=== PATIENT | female | born 1975 | race Caucasian/White ===

== ENCOUNTER → 2020-05-16 12:53 | Outpatient (BNVA) | payer OTHER, SELFPAY | PROVIDERS: PCP Internal Medicine; Referring Provider Internal Medicine; Visit Provider Internal Medicine | DX: Z45.018 Encounter for adjustment and management of other part of cardiac pacemaker (principal); Z86.79 Personal history of other diseases of the circulatory system | CPT/HCPCS: 93005; 99204 ==

== ENCOUNTER → 2020-11-13 12:36 | Outpatient (BNVA) | payer OTHER, SELFPAY | PROVIDERS: PCP Internal Medicine; Visit Provider Internal Medicine | DX: Z45.018 Encounter for adjustment and management of other part of cardiac pacemaker (principal); I45.9 Conduction disorder, unspecified | CPT/HCPCS: 99212 ==

== ENCOUNTER → 2021-02-07 14:06 | Outpatient (REF) | payer OTHER, SELFPAY ==
--- NOTE | 2021-02-07 14:11 | CA_ITS ---
Transthoracic Echocardiogram Patient (Last, First, Middle): Cris Martinez, Gender: Female Date of : 1975 Age: 45 Procedure Date: 02/07/2021 Procedure Type: Transthoracic Echocardiogram Location: OP Height: 165.1 cm Weight: 104.33 kg BSA: 2.10 m2 Heart Rate: bpm BP: 124 / mmHg Brass Pourer: Referring MD: Sherwin Conroy MD Symptoms: I45.9 - Conduction disorder, unspecified Study Quality: Fair ECG Rhythm: Ventriculary paced rhythm Conclusions: - The left ventricular systolic function is normal. The visually estimated ejection fraction is between 60-65%. - No obvious valvular pathology seen on this study. Findings Left Ventricle Normal left ventricular cavity size. There is normal left ventricular wall thickness. The left ventricular systolic function is normal. The visually estimated ejection fraction is between 60-65%. There is no evidence of regional wall motion abnormalities. Diastolic function is normal for age. Right Ventricle Normal right ventricular cavity size and systolic function. There is a pacemaker wire seen in the right ventricle. Atria Both atria are normal in size. Aortic Valve The aortic valve was not well visualized. There is no aortic valve stenosis. There is no aortic valve regurgitation. Mitral Valve The mitral valve appears normal. There is no mitral valve regurgitation. There is no mitral valve stenosis. Pulmonic Valve The pulmonic valve was not well visualized. Tricuspid Valve There is mild tricuspid valve regurgitation. The pulmonary artery systolic pressure is normal. Great Vessels The aortic annulus, sinuses of valsalva, and asc aorta are normal in size. Venous The inferior vena cava is normal in size and collapses greater than 50% with inspiration. Pericardium/Pleural There is no evidence of pericardial effusion. Prior Study Comparison No significant change compared to prior study dated: 01/06/2020. Recommendations, Care & Conclusions No obvious valvular pathology seen on this study. Measurements 2D Linear Measurements IVSd: 1.10 0.6-0.9/0.6-1.0 cm LVIDd: 3.86 3.9-5.3/4.2-5.9 cm LVIDd Index: 1.84 2.4-3.2/2.2-3.1 cm/m2 LVIDs: 2.51 2.0-3.6 cm LVPWd: 1.15 0.7-1.1 cm Ao Root: 3.30 2.1-3.5 cm LA Diam: 3.40 2.7-3.8/3.0-4.0 cm LAIDs Index: 1.62 1.5-2.3 cm/m2 LV Mass: 177.41 67-162/88-224 g LV Mass Index: 84.48 43-95/49-115 g/m2 LVOT Diam: 2.20 3.0+(-)1.3 cm 2D Systolic Function EF 4C: 61.40 >55% EF 2C: 59.60 >55% EF BiP: 60.30 >55% Mitral Valve MV Pk E: 0.85 MV PK A: 0.63 MV Decel Time: 174.00 E/A: 1.30 E'Lateral: 12.30 E'Medial: 5.11 E/E' Med: 16.70 E/E' Lat: 6.90 Aortic Valve AoV Pk Hola: 1.54 AoV Mn Hola: 1.01 AoV VTI: 0.32 AoV Pk Grad: 9.00 Aov Mn Grad: 5.00 SHAWN Cont.VTI: 2.81 LVOT LVOT Pk Hola: 1.16 LVOT Mn Hola: 0.86 LVOT VTI: 0.24 LVOT Pk Grad: 5.00 LVOT Mn Grad: 3.00 LVOT Diam: 2.20 LVOT Area: 3.80 Diastolic Function MV Pk E: 0.85 MV Pk A: 0.63 E/A: 1.30 E'Medial: 5.11 E/E' Med: 16.70 E' Laterial: 12.30 E/E' Lat: 6.90 Tricuspid Valve TR Pk Hola: 2.23 TR Pk Grad: 20.00 RA Press: 3.00 RVSP: 23.00 Great Vessels Aorta Ao Root-2D: 3.30 2.0-3.7 cm Ao Asc: 3.00 2.1-3.4 cm Pulmonary Valve PV Pk Hola: 1.17 Peak PV Grad: 5.00 Updated in Other Vendor System with Status of Final Sherwin Conroy MD electronically signed on 02/09/2021 10:50:43 AM with status of Final
== END ==
LOC: HO.CARD 14:06
PROVIDERS: PCP Internal Medicine; Visit Provider Internal Medicine
DX: I45.9 Conduction disorder, unspecified (principal)
CPT/HCPCS: 93306

== ENCOUNTER → 2021-06-25 12:35 | Outpatient (BNVA) | payer OTHER, SELFPAY | PROVIDERS: PCP Internal Medicine; Referring Provider Internal Medicine; Visit Provider Internal Medicine | DX: I45.9 Conduction disorder, unspecified (principal); I36.1 Nonrheumatic tricuspid (valve) insufficiency; Z95.0 Presence of cardiac pacemaker | CPT/HCPCS: 99212 ==

== ENCOUNTER 2021-09-15 10:12 | Outpatient (REF) | payer OTHER, SELFPAY ==
[2021-09-15 10:38] LABS: MANUAL DIFF FLAG NO
[2021-09-15 11:01] LABS: Basophils Percent Auto 0.4 % (0-2); Eosinophils Absolute Auto 0.1 X10*3/uL (0.0-0.4); Eosinophils Percent Auto 1.8 % (0-4); Hematocrit 43.5 % (37.0-47.0); Hemoglobin 14.5 g/dl (12.0-16.0); Imm Gran Abs Auto 0.02 X10*3/uL (0.00-0.03); Imm Gran Pct Auto 0.3 % (0.0-0.4); Lymphocytes Absolute Auto 1.8 X10*3/uL (1.2-4.9); Mean Corpuscular HGB Conc 33.3 g/dl (31.0-35.0); Mean Corpuscular Hemoglobin 29.1 pg (27.0-33.0); Mean Corpuscular Volume 87.2 fL (80.0-98.0); Mean Platelet Volume 10.9 fL (9.4-12.3); Monocytes Absolute Auto 0.5 X10*3/uL (0.1-1.2); Monocytes Percent Auto 6.7 % (2-11); Neutrophils Absolute Auto 4.8 x10*3/uL (2.0-8.3); Neutrophils Percent Auto 65.8 % (45-73); Platelet Count 251 X10*3/uL (160-400); Red Blood Count 4.99 X10*6/uL (4.20-5.50); Red Cell Distribution Width 11.9 % (11.0-16.0); White Blood Count 7.3 X10*3/uL (4.8-10.8)
[2021-09-15 11:43] LABS: Thyroid Stimulating Hormone 0.93 uIU/mL (0.32-4.0); Vitamin D 25-OH Total 17.3 ng/mL (>30)
[2021-09-15 11:55] LABS: Alanine Aminotransferase 7 U/L (0-31); Albumin Level 4.4 g/dL (3.5-5.0); Alkaline Phosphatase 138 U/L (39-117); Anion Gap 12 (12-20); Aspartate Amino Transferase 13 U/L (5-31); Bilirubin Total 0.7 mg/dL (0.0-1.0); Blood Urea Nitrogen 8 mg/dL (9-16); Calcium 9.7 mg/dL (8.4-10.2); Carbon Dioxide 29 mmol/L (22-29); Chloride 103 mmol/L (96-108); Cholesterol 204 mg/dL; Estimated Glomerular Filt Rate > 60; Glucose Fasting 116 mg/dL (60-99); HDL Cholesterol 57 mg/dL; LDL Cholesterol Calculated 118 mg/dl; Potassium 4.8 mmol/L (3.3-5.1); Sodium 139 mmol/L (135-145); Total Protein 7.4 g/dL (6.5-8.0); Triglycerides 145 mg/dL
[2021-09-17 04:20] LABS: Vitamin B12 295 pg/mL (200-900)
== END 2021-09-15 10:13 | disposition home or self-care (01) ==
LOC: HO.LAB 10:12
PROVIDERS: PCP Internal Medicine; Visit Provider Internal Medicine
DX: R06.00 Dyspnea, unspecified (principal); R53.83 Other fatigue; Z95.0 Presence of cardiac pacemaker
CPT/HCPCS: 36415; 80053; 80061; 82306; 82607; 84443; 85025

== ENCOUNTER → 2021-10-03 15:51 | Outpatient (REF) | payer OTHER, SELFPAY | LOC: HO.SL 15:51 | PROVIDERS: PCP Internal Medicine; Visit Provider Internal Medicine | DX: G47.33 Obstructive sleep apnea (adult) (pediatric) (principal) | CPT/HCPCS: 95806 ==

== ENCOUNTER 2021-10-12 15:49 | Outpatient (REF) | payer OTHER, SELFPAY ==
--- NOTE | ~2021-10-12 | MM_ITS ---
EXAMINATION: MM SCREENING DIGITAL BREAST TOMOSYNTHESIS, BILATERAL CLINICAL INFORMATION: Screening. Asymptomatic. Age 45. No prior mammography. Family history breast cancer, maternal aunt. The lifetime risk of breast cancer based on Tyrer-Cuzick Model is 13%. COMPARISON: None (current study represents initial baseline exam). TECHNIQUE: Digital breast tomosynthesis is performed in both the craniocaudal and mediolateral oblique views along with computer-aided detection (CAD). Synthesized 2D images are generated from the tomosynthesis. Additional left MLO view is provided. FINDINGS: There are scattered areas of fibroglandular density (ACR BI-RADS breast composition Category b). There is fine fibronodular parenchymal pattern. The right breast has prominent draining vein upper breast and axilla. There is no adenopathy. There is no mass or architectural abnormality or abnormal calcifications. Left breast has a pacemaker generator overlying and partly obscuring posterior axilla on MLO view. There are no abnormal calcifications. The left CC view has asymmetric density mid outer quadrant 6 cm from nipple without MLO correlate, likely summation artifact. As this represents initial baseline exam, patient will be recalled to fully characterize. MM/MM tomosynthesis screening BI IMPRESSION: 1. Left: Asymmetric density mid outer quadrant on CC view, suspect summation artifact or incompletely compressed glandular tissue. 2. Right: No mammographic evidence of malignancy. ASSESSMENT: BI-RADS 0: Incomplete - Need Additional Imaging Evaluation RECOMMENDATION: 1. Additional views of the left breast (spot CC, rolled CC x2). 2. Targeted ultrasound if warranted after review of the additional views. 3. Radiology department staff will contact the patient for additional imaging. This patient's information was entered into a reminder system with a target due date for their next mammogram.
== END 2021-10-12 15:50 | disposition home or self-care (01) ==
LOC: HO.MAMMO 15:49
PROVIDERS: PCP Internal Medicine; Visit Provider Internal Medicine
DX: Z12.31 Encounter for screening mammogram for malignant neoplasm of breast (principal)
CPT/HCPCS: 77063; 77067

== ENCOUNTER 2021-11-01 14:51 | Outpatient (REF) | payer OTHER, SELFPAY ==
--- NOTE | ~2021-11-01 | MM_ITS ---
EXAMINATION: MM DIAGNOSTIC DIGITAL BREAST TOMOSYNTHESIS, LEFT CLINICAL INFORMATION: Recall from baseline screening for parenchymal asymmetry mid outer breast on CC view, likely summation artifact or incompletely compressed glandular tissue. COMPARISON: Mammography: 10/12/2021 (baseline) TECHNIQUE: Digital breast tomosynthesis is performed. 2D images are generated from the tomosynthesis. The following views are obtained: Rolled CC x2, spot CC. FINDINGS: There are scattered areas of fibroglandular density (ACR BI-RADS breast composition Category b). Additional views show no mass or architectural abnormality. No suspicious parenchymal density. Results are discussed with the patient at time of visit. MM/MM tomosynthesis added views L IMPRESSION: Additional views show no mass, architectural abnormality, or suspicious parenchymal density. ASSESSMENT: BI-RADS 1: Negative RECOMMENDATION: Routine annual mammography screening. This patient's information was entered into a reminder system with a target due date for their next mammogram.
== END 2021-11-01 14:52 | disposition home or self-care (01) ==
LOC: HO.MAMMO 14:51
PROVIDERS: PCP Internal Medicine; Visit Provider Internal Medicine
DX: R92.2 Inconclusive mammogram (principal)
CPT/HCPCS: 77061; 77065

== ENCOUNTER → 2021-12-10 13:17 | Outpatient (BNVA) | payer OTHER, SELFPAY | PROVIDERS: PCP Internal Medicine; Referring Provider Internal Medicine; Visit Provider Internal Medicine | DX: Z45.018 Encounter for adjustment and management of other part of cardiac pacemaker (principal); I45.9 Conduction disorder, unspecified; I36.1 Nonrheumatic tricuspid (valve) insufficiency | CPT/HCPCS: 93005; 93280; 99212 ==

== ENCOUNTER 2022-03-23 09:58 | Outpatient (REF) | payer OTHER, SELFPAY ==
--- NOTE | ~2022-03-23 | XR_ITS ---
EXAMINATION: XR CHEST CLINICAL INFORMATION: Shortness of breath. COMPARISON: None available at the moment for comparison. TECHNIQUE: 2 views of the chest were obtained. FINDINGS: Dual-lead left pectoralis pacemaker device placed from the left subclavian approach is noted. Tip of both leads appear to be projecting in the region of the right ventricle. Specific note is made of apparent disruption of one of the lead with a gap of approximately 1.9 cm seen both on the frontal as well as lateral projection. Note is also made of abandoned leads from right subclavian approach. Both lungs are symmetrically expanded and are clear. The cardiac mediastinal silhouette otherwise appear unremarkable. No evidence of any pleural effusion or pneumothorax. Visualized upper abdomen is unremarkable. XR/XR chest 2V IMPRESSION: 1. Abandoned leads from the right subclavian approach. 2. 1 of the pacemaker lead placed from the left subclavian approach appears broken while the second one is intact. 3. No radiographic evidence of acute cardiopulmonary disease. The current study was read without the benefit of direct visual comparison with prior studies. Subtle findings can only be apparent when comparison is made with prior studies. If prior studies become available, following comparison, an addendum will be dictated. This critical result was discussed with Dr. Saqib Bishop MD at 4:22 PM on 03/26/2022 and it was ascertained that the content and urgency of the report was understood at the time of direct communication.
[2022-03-23 10:50] LABS: Basophils Absolute Auto 0.1 X10*3/uL (0.0-0.2); Basophils Percent Auto 0.7 % (0-2); D Dimer High Sensitivity < 150 NG/ML; Eosinophils Absolute Auto 0.1 X10*3/uL (0.0-0.4); Eosinophils Percent Auto 1.2 % (0-4); Hematocrit 43.3 % (37.0-47.0); Hemoglobin 14.9 g/dl (12.0-16.0); Imm Gran Abs Auto 0.02 X10*3/uL (0.00-0.03); Imm Gran Pct Auto 0.3 % (0.0-0.4); Lymphocytes Absolute Auto 1.7 X10*3/uL (1.2-4.9); Lymphocytes Percent Auto 23.1 % (20-40); MANUAL DIFF FLAG NO; Mean Corpuscular HGB Conc 34.4 g/dl (31.0-35.0); Mean Corpuscular Hemoglobin 29.6 pg (27.0-33.0); Mean Corpuscular Volume 85.9 fL (80.0-98.0); Mean Platelet Volume 11.1 fL (9.4-12.3); Monocytes Absolute Auto 0.5 X10*3/uL (0.1-1.2); Monocytes Percent Auto 6.4 % (2-11); Neutrophils Percent Auto 68.3 % (45-73); Platelet Count 222 X10*3/uL (160-400); Red Blood Count 5.04 X10*6/uL (4.20-5.50); Red Cell Distribution Width 11.8 % (11.0-16.0); White Blood Count 7.4 X10*3/uL (4.8-10.8)
[2022-03-23 11:30] LABS: Alanine Aminotransferase 14 U/L (0-31); Albumin Level 4.4 g/dL (3.5-5.0); Alkaline Phosphatase 125 U/L (39-117); Anion Gap 16 (12-20); Aspartate Amino Transferase 16 U/L (5-31); Bilirubin Total 0.8 mg/dL (0.0-1.0); Blood Urea Nitrogen 11 mg/dL (9-16); Calcium 9.6 mg/dL (8.4-10.2); Carbon Dioxide 25 mmol/L (22-29); Chloride 102 mmol/L (96-108); Estimated Glomerular Filt Rate > 60; Glucose Random 130 mg/dL (60-115); Potassium 4.6 mmol/L (3.3-5.1); Sodium 138 mmol/L (135-145); Total Protein 7.5 g/dL (6.5-8.0)
[2022-03-23 11:42] LABS: B Type Natriuretic Peptide 46 pg/mL (<100)
[2022-03-23 11:53] LABS: Free T4 (Free Thyroxine) 1.05 ng/dL (0.71-1.85); Thyroid Stimulating Hormone 1.11 uIU/mL (0.32-4.0)
== END 2022-03-23 09:59 | disposition home or self-care (01) ==
LOC: HO.LAB 09:58
PROVIDERS: PCP Internal Medicine; Visit Provider Internal Medicine
DX: R06.02 Shortness of breath (principal); I36.1 Nonrheumatic tricuspid (valve) insufficiency
CPT/HCPCS: 36415; 71046; 80053; 83880; 84439; 84443; 85025; 85379

== ENCOUNTER 2022-05-21 10:37 | Outpatient (REF) | payer OTHER, SELFPAY ==
[2022-05-22 09:21] LABS: BV Int Neg Control Negative (Negative); BV Int Pos Control Positive (Positive)
[2022-05-23 22:17] LABS: HPV mRNA E6/E7 rflx Not Detected (Not Detected)
== END 2022-05-21 10:38 | disposition home or self-care (01) ==
LOC: HO.LNP 10:37
PROVIDERS: Visit Provider Advanced Practice Midwife
DX: Z01.419 Encounter for gynecological examination (general) (routine) without abnormal findings (principal); N89.8 Other specified noninflammatory disorders of vagina
CPT/HCPCS: 87480; 87510; 87624; 87660; 88142

== ENCOUNTER → 2022-07-15 13:53 | Outpatient (BNVA) | payer OTHER, SELFPAY | PROVIDERS: PCP Internal Medicine; Referring Provider Internal Medicine; Visit Provider Internal Medicine | DX: I45.9 Conduction disorder, unspecified (principal); I36.1 Nonrheumatic tricuspid (valve) insufficiency; Z45.018 Encounter for adjustment and management of other part of cardiac pacemaker | CPT/HCPCS: 93005; 93280; 99212 ==

== ENCOUNTER → 2023-04-13 23:59 | Outpatient (BNV) | payer OTHER, SELFPAY ==
--- NOTE | 2023-04-19 14:07 | A.OFFVIS_ITS ---
Intake Intake Visit Reasons: Remote Device Check- [employer] Allergies Penicillins [PENICILLINS] Allergy (Intermediate, Verified 07/15/22 14:10) rash IV contrast Allergy (Unknown, Uncoded 12/10/21 13:34) UNKNOWN [facility] Medical History Heart block Surgical History H/O unilateral oophorectomy History of bilateral tubal ligation History of cardiac pacemaker History of endometrial ablation Family History Father Diabetes Mother Ovarian cancer Social History Alcohol intake: current Alcohol intake frequency: holidays/special occasions only Patient Tobacco Use Status: Never used Tobacco Sexual orientation: Straight/Heterosexual Gender identity: Female Office Procedures Cardiac Device Check Cardiac Device Check Details: Date of service- 04/13/2023 ; Battery life 2-38months; normal lead parameters; [employer] DEV[employer] >99%; no significant arrhythmias. Overall normal device function. [id number] Cardiac Device Interrogation, pacemaker Procedure code (CPT) selection complete Assessment & Plan Assessment & Plan (1) Heart block: Code(s): I45.9 - Conduction disorder, unspecified Coding Level of Care Code Procedure Only Diagnoses Heart block I45.9 CPT Codes Cardiac Device Check - Cardiac Device 12: [id number] Cardiac Device Interrogation, pacemaker ([id number])
== END ==
PROVIDERS: PCP Internal Medicine; Visit Provider Internal Medicine
DX: I45.9 Conduction disorder, unspecified (principal); Z95.0 Presence of cardiac pacemaker
CPT/HCPCS: 93294

== ENCOUNTER 2024-01-12 14:46 | Outpatient (AMB) | payer OTHER, SELFPAY ==
--- NOTE | 2024-01-12 15:19 | MHC.OFFVIS ---
Vital Signs 01/12/24 15:20 Height 5 ft 5 in Weight 244 lb 11.41 oz BMI 40.7 BP 122/68 Blood Pressure Location Lt brachial Position Sitting Pulse 86 Pulse Source Monitor Intake Visit Reasons: [employer]tr[employer] then appt Allergies Penicillins [PENICILLINS] Allergy (Intermediate, Verified 07/15/22 14:10) rash IV contrast Allergy (Unknown, Uncoded 12/10/21 13:34) UNKNOWN Medication List - Last Reconciled 01/12/24 by Sherwin Conroy MD naproxen mg PO HPI Comments Details: Cris is here for follow-up regarding her pacemaker. Per patient, she has had a pacemaker since age of 6 or so. She apparently passed out around that time at which time she was thought to have possibly heart block. Then she underwent pacemaker placement. Initially it appears that she had an epicardial pacemaker in the abdomen. Then that was changed to a right pectoral pacemaker at some point and then currently it is in the left pectoral area. She has had several generator changes over time. Since last seen, no new complaints. She states she is feeling fine. Prior sleep study was apparently negative. Otherwise, no known coronary disease, myocardial infarction or cardiomyopathy. [facility] Medical History Heart block Surgical History H/O unilateral oophorectomy History of bilateral tubal ligation History of cardiac pacemaker History of endometrial ablation Family History Father Diabetes Mother Ovarian cancer Social History Alcohol intake: current Alcohol intake frequency: holidays/special occasions only Patient Tobacco Use Status: Never used Tobacco Sexual orientation: Straight/Heterosexual Gender identity: Female Review of Systems Const Denies weakness ENT Denies dizziness Card Denies chest pain, Denies chest pain with activity, Denies syncope, Denies rapid heart rate, Denies pedal edema, Denies edema, Denies leg edema, Denies lightheadedness, Denies palpitations, Denies dyspnea, Denies dyspnea on exertion and Denies orthopnea Resp Denies cough, Denies dyspnea and Denies dyspnea on exertion GI Denies hematochezia and Denies change in stool character Musc Denies abnormal gait, Denies muscle cramps, Denies muscle weakness, Denies numbness, Denies radiating pain into limb and Denies tingling Neuro Denies abnormal gait, Denies dizziness, Denies syncope, Denies numbness, Denies tingling and Denies weakness Endo Denies palpitations Physical Exam Vital Signs: Last Vital Signs Pulse 86 01/12/24 15:20 BP 122/68 01/12/24 15:20 BMI result Body Mass Index 40.7 Const General: comfortable and no acute distress Orientation/consciousness: patient oriented x3 HEENT Other: Unremarkable Head: Yes normal to inspection Neck Neck: Yes normal visual inspection Chest Chest palpation & inspection: normal inspection of the chest Resp Auscultation: clear to auscultation bilaterally Cardio Palpation: normal PMI Heart sounds: S1 normal heart sound present, S2 normal heart sound present, no gallops, no murmurs and no rubs GI Palpation (GI): Soft to palpation Back/Spine/Pelvis Other: unremarkable Skin General skin exam: no rashes or lesions noted Neuro General: patient oriented x3 Extrem General: Yes normal to inspection Psych Mental Status: mental status grossly normal Office Procedures Cardiac Device Check Cardiac Device Check Details: Pacemaker interrogated today. Dual-chamber device, programmed DDD mode. Battery status 7 months. Normal lead parameters. No significant atrial arrhythmias. Atrial pacing 1.5%. Ventricular pacing 99.9%. No episodes. Overall, normal device function. [id number] Cardiac Device Check, pacemaker dual lead Procedure code (CPT) selection complete EKG Details: EKG with atrial sensed, ventricular paced rhythm at 86/Min; possibly PACs. [id number], Complete Assessment & Plan Assessment & Plan (1) Heart block: Code(s): I45.9 - Conduction disorder, unspecified Category: Medical (2) Presence of cardiac pacemaker: Code(s): Z95.0 - Presence of cardiac pacemaker Category: Medical (3) Non-rheumatic tricuspid valve insufficiency: Code(s): I36.1 - Nonrheumatic tricuspid (valve) insufficiency Category: Medical Plan Echocardiogram in the past mild tricuspid regurgitation but otherwise unremarkable. Preserved LVEF and RVEF. Pacemaker also seems to function normally. We will recheck a pacemaker in about 4-6 months as the battery life is becoming short. We will also recheck an echocardiogram prior to generator change. Orders: Orders CA echo transthoracic complete 6 Months I36.1 - Nonrheumatic tricuspid (valve) insufficiency, I45.9 - Conduction disorder, unspecified, Z95.0 - Presence of cardiac pacemaker Coding Level of Care Code Est Pt Level 3 (78568) Diagnoses Heart block I45.9 Presence of cardiac pacemaker Z95.0 Non-rheumatic tricuspid valve insufficiency I36.1 CPT Codes Cardiac Device Check - Cardiac Device 2: [id number] Cardiac Device Check, pacemaker dual lead ([id number]) EKG - CPT: 45508-[id number], Complete ([id number])
[2024-01-12 15:20] VITALS: BP 122/68; PULSE 86; BMI 40.7
== END 2024-01-12 15:48 | disposition home or self-care (01) ==
PROVIDERS: PCP Internal Medicine; Visit Provider Internal Medicine
DX: I44.30 Unspecified atrioventricular block (principal); R94.31 Abnormal electrocardiogram [ECG] [EKG]; Z95.0 Presence of cardiac pacemaker; I36.1 Nonrheumatic tricuspid (valve) insufficiency
CPT/HCPCS: 93010; 93280; 99213

== ENCOUNTER → 2024-01-12 14:46 | Outpatient (BNVA) | payer OTHER, SELFPAY | PROVIDERS: PCP Internal Medicine; Visit Provider Internal Medicine | DX: I36.1 Nonrheumatic tricuspid (valve) insufficiency (principal); I45.9 Conduction disorder, unspecified; Z45.018 Encounter for adjustment and management of other part of cardiac pacemaker | CPT/HCPCS: 93005; 93280 ==

== ENCOUNTER 2024-05-23 18:19 | Emergency (ER) | payer OTHER, SELFPAY ==
--- NOTE | ~2024-05-23 | CT_ITS ---
EXAMINATION: CT HEAD WITHOUT CONTRAST CLINICAL INFORMATION: Headache. COMPARISON: None available. TECHNIQUE: Contiguous axial imaging was performed from the skull base to vertex without intravenous administration of contrast. This CT examination was performed using dose optimization techniques as appropriate, variously including the following: *Automated exposure control *Adjustment of mA and/or kV according to patient size (this includes techniques or standardized protocols for targeted exams where dose is matched to indication/reason for exam; i.e. extremities or head) *Use of iterative reconstruction technique DLP: 649 mGy-cm FINDINGS: There is a small volume of subarachnoid hemorrhage anterior to the right side of the socorro. Hemorrhage extends superiorly into the interpeduncular cistern. Blood extends inferiorly along the premedullary surface. There is no evidence of acute/subacute cerebral or cerebellar infarction. There is no midline shift or mass effect. The ventricles are normal in size. The orbits are symmetric and within normal limits. The calvarium is intact. The mastoid air cells are clear. Visualized paranasal sinuses are well-aerated. CT/CT head/brain wo IV con IMPRESSION: There is a small volume of subarachnoid hemorrhage anterior to the right side of the socorro. Hemorrhage extends superiorly into the interpeduncular cistern and inferiorly along the anterior aspect of the medulla. This critical result was discussed with Blanca Amor MD at 7:16 PM on 05/23/2024 and it was ascertained that the content and urgency of the report was understood at the time of direct communication. Electronically signed by: Alden Julio DO 05/23/2024 07:20 PM EDT
--- NOTE | ~2024-05-23 | CT_ITS ---
EXAMINATION: CT ANGIOGRAM NECK AND HEAD CLINICAL INFORMATION: Subarachnoid hemorrhage. COMPARISON: Correlation made with CT performed on the same day. TECHNIQUE: Sequential axial angiographic images of the head and neck obtained. Sagittal and coronal reformatted MIP images also obtained. The degree of stenosis determined by NASCET criteria. This CT examination was performed using dose optimization techniques as appropriate, variously including the following: *Automated exposure control *Adjustment of mA and/or kV according to patient size (this includes techniques or standardized protocols for targeted exams where dose is matched to indication/reason for exam; i.e. extremities or head) *Use of iterative reconstruction technique DLP: 1548 mGy-cm FINDINGS: The visualized aortic arch is within normal limits. There is a three-vessel branch pattern from the aortic arch. The aortic arch branch vessels are patent. The visualized upper lung devine and upper mediastinal unremarkable. CTA NECK: The common carotid, internal and the external carotid arteries are patent. The left vertebral artery is dominant. The bilateral vertebral arteries are patent. CTA HEAD: The intracranial internal carotid arteries, anterior and middle cerebral arteries are patent. The distal vertebral arteries, basilar artery and branches are also patent. No aneurysm is identified. CT/CT angio head neck IMPRESSION: No evidence of large vessel occlusion or significant stenosis in the head and neck. No aneurysm is identified. Consider perimesencephalic subarachnoid hemorrhage which may be venous in nature. Electronically signed by: Yusuf Chaidez MD 05/24/2024 02:26 AM EDT
[2024-05-23 18:30] VITALS: BP 178/64; PULSE 65; RESP 18; TEMP 36; O2SAT 98; BMI 39.9
--- NOTE | 2024-05-23 18:34 | ED_ITS ---
HPI - General Adult General Chief complaint: Headache Stated complaint: Spinal pain/Sharp headache Time Seen by Provider: 05/23/24 19:32 Source: patient Mode of arrival: ambulatory Limitations: no limitations History of Present Illness ED Provider: Dr. Blanca Amor HPI narrative: patient comes to the emergency room complaining of a throbbing headache that started over 24 hour hours ago. According to the patient, she was laying down, and when she stood up, she started having back pain and sharp headache in the middle in the front. Patient states that the pain is intermittent, has not taking multiple doses of Tylenol and Motrin, medication seems to help but not for long, the throbbing pain returns fairly quickly. Patient denies any numbness or tingling. Patient states that she also has a bit of neck fullness in the posterior aspect. Otherwise, patient denies any loss of motor function, otherwise feels well. Patient denies any falls, no trauma, patient denies being on blood thinners or any medication. Patient states that she has a pacemaker since she was 6 years old for heart block, has never had any other cardiac issues. Related Data Home Medications ?Medication ?Instructions ?Recorded ?Confirmed No Known Home Meds 05/23/24 05/23/24 Allergies Allergy/AdvReac Type Severity Reaction Status Date / Time Penicillins [PENICILLINS] Allergy Intermediate rash Verified 05/23/24 18:36 IV contrast Allergy Unknown UNKNOWN Uncoded 12/10/21 13:34 Review of Systems 2 Review of Systems: Constitutional : No Weight loss, No Fever, No Chills, No Night Sweats, No Fatigue, No Malaise ENT/Mouth : No Hearing loss, No Ear Pain, No Nasal Congestion, No Sinus Pain, No Hoarseness, No sore throat, No Rhinorrhea, No Swallowing Difficulty Eyes: No Eye Pain, No Swelling, No Redness, No Foreign Body, No Discharge, No Vision Changes Cardiovascular : No Chest Pain, No SOB, No Dyspnea on Exertion, No Orthopnea, No Edema, No Palpitations Respiratory : No Cough, No Sputum, No Wheezing, No Smoke Exposure, No Dyspnea Gastrointestinal : No Nausea, No Vomiting, No Diarrhea, No Constipation, No abdominal Pain, No Hematochezia, No Melena Genitourinary : no irregular bleeding, No Dysuria, No Urinary Frequency, No Hematuria, No Urinary Incontinence, No Urgency, No Flank Pain, No Urinary Flow Changes, No Hesitancy Musculoskeletal : No joint pain, No Myalgias, No Joint Swelling Skin : No Skin Lesions, No rash Neuro : No Weakness, No Numbness, No Paresthesias, No Loss of Consciousness, No Dizziness, Complaining of a sharp intermittent Headache Psych : No Anxiety/Panic, No Depression, No SI/HI/AH/VH, No Social Issues, Heme/Lymph: No Bruising, No Bleeding,No Lymphadenopathy Endocrine : No Polyuria, No Polydipsia, No Temperature Intolerance [facility] Past Medical History Medical History Heart block Surgical History H/O unilateral oophorectomy History of bilateral tubal ligation History of cardiac pacemaker History of endometrial ablation Family History Family History Father Diabetes Mother Ovarian cancer Social History Social History Alcohol intake: current Alcohol intake frequency: holidays/special occasions only Patient Tobacco Use Status: Never used Tobacco Smoked in Last 30 Days: No Use of substances other than those prescribed or required for medical reasons: No Advance Directives: No Advance Directives Information Provided: No Sexual orientation: Straight/Heterosexual Gender identity: Female Physical Exam ED Vital Signs: Vital Signs - 24 hr 05/23/24 18:30 05/23/24 19:28 05/23/24 19:50 Temperature 96.8 F 97.9 F Pulse Rate 65 65 Respiratory Rate 18 18 16 Blood Pressure 178/64 H 146/65 H Pulse Oximetry 98 97 Oxygen Delivery Method Room Air Room Air 05/23/24 20:28 05/23/24 20:28 05/23/24 21:27 Temperature Pulse Rate 65 65 65 Respiratory Rate 16 16 16 Blood Pressure 143/72 H 143/72 H 122/59 L Pulse Oximetry 97 96 Oxygen Delivery Method Room Air Room Air 05/23/24 22:47 05/24/24 00:46 05/24/24 02:22 Temperature 98 F 97.7 F Pulse Rate 65 65 65 Respiratory Rate 16 14 18 Blood Pressure 110/65 130/70 150/66 H Pulse Oximetry 96 95 96 Oxygen Delivery Method Room Air Room Air Room Air BMI result Body Mass Index 39.9 Const Other: Appearance: Alert. Oriented X3. No acute distress. Eyes: Pupils equal, round and reactive to light. ENT: Pharynx normal. able to move then neck with discomfort with flexion and extension. Neck: Normal inspection. Neck supple. No lymph nodes noted. No crepitus CVS: Normal heart rate and rhythm. Pulses normal. Normal S1 and S2 Respiratory: No respiratory distress. Breath sounds normal. No Wheezing. No rales Abdomen: Soft and nontender. No rigidity. No distention. Skin: Skin warm and dry. Normal skin color. Normal skin turgor. Extremities: No lower extremity edema. No Lacerations. No Rash Neuro: Oriented X 3. No motor deficit. No sensory deficit. Moving all extremities. No slurred speech. CN 2 through 12 grossly intact Psych: calm, cooperative, normal affect Course Course Course Narrative: This is a Rapid Medical Examination (RME) performed by Rebecca Gordon PA-C in triage. Full HPI, ROS, assessment and treatment plan per primary provider in the Main ED. 48 yo female hx of heart block s/p pacemaker here for eval of throbbing, stabbing headache x24 hours. Pain radiation to neck and back. Worse with sitting. Denies recent fall, trauma, injury. No history of similar. Endorses associated numbness to right hand. Plan: labs, ekg, ct head Medications Administered Discontinued Medications Generic Name Dose Route Start Last Admin Trade Name Freq PRN Reason Stop Dose Admin Diazepam 2 mg 05/24/24 00:26 05/24/24 00:47 Diazepam 2 Mg Tablet PO 05/24/24 00:27 2 mg ONCE ONE Administration Diphenhydramine HCl 50 mg 05/23/24 20:17 05/23/24 20:29 Diphenhydramine Hcl 50 Mg/Ml Vial IVPUSH 05/23/24 20:18 50 mg ONCE ONE Administration Famotidine 20 mg 05/23/24 20:17 05/23/24 20:29 Famotidine/Pf 20 Mg/2 Ml Vial IVPUSH 05/23/24 20:18 20 mg ONCE ONE Administration Iohexol 70 ml 05/23/24 21:24 05/23/24 21:25 Iohexol 350 Mg/Ml 100 Ml Infus..Btl IV 05/23/24 21:25 70 ml ONCE ONE Administration Methylprednisolone Sodium Succinate 125 mg 05/23/24 20:17 05/23/24 20:29 Methylprednisolone Sod Succ 125 Mg/2 Ml Vial IVPUSH 05/23/24 20:18 125 mg ONCE ONE Administration Morphine Sulfate 2 mg 05/23/24 19:44 05/23/24 19:50 Morphine Sulfate 2 Mg/Ml Cartridge IVPUSH 05/23/24 19:45 2 mg ONCE ONE Administration Protocol Medical Decision Making Medical Decision Making MDM Narrative: - I received a phone call from [facility], there is a small volume subarachnoid hemorrhage in the anterior to the right side of the socorro. Hemorrhage extends superiorly into the interventricular cistern and inferiorly along the anterior aspect of the medulla. - My interpretation of EKG: Ventricular paced rhythm. Heart rate 65, nonspecific ST segment elevations, no T-wave inversion, QTC 470 - A CTA has been ordered to rule out an aneurysm. patient states that she has been told since childhood that she has an allergy to contrast, consisting of hives. Patient agreeable to get premedicated before the CT scan. - Patient was given IV morphine for the headache. - After the CT scan, patient did not develop any allergic reaction, contrast was well tolerated after being premedicated with Solu-Medrol, Pepcid and Benadryl. - Patient's blood pressure 130/70, heart rate 65, no fever, oxygen saturation 95-99% on room air. - After IV morphine, patient states that the headache nearly resolved. Patient states that what is bothering her more the most is a fullness in her neck. Patient was given 2 mg of p.o. diazepam. - CTA has been pending for several hours. We have called multiple times [facility] trying to get The radiology report. - Fortunately, patient is doing well, stable vital signs, no neurological decompensation, GCS 15, headache improving and neck fullness improving slightly as well - I discussed the patient with [facility] PA from Neurosurgery on- call. At this time, unlikely that the patient will need any kind of intervention other than observation. Recommendations, talk to Neurology. - 02:10, we have contacted [facility] at least 5 times. A were data communications technician called [facility] to check why the CT scan has not been red for so many hours. According to [facility] staff, they did not have neuro radiologist on-call for the shift and were waiting for the next neuro radiologist to come and shift. - Patient continues being stable, GCS 15, states that the diazepam helped. As long as she does not move, patient is asymptomatic. No headache, no neck pain as long as she does not move. If she moves, the Patient in the posterior aspect of the neck is minimal. - CT of the head and neck: Very perimesencephalic subarachnoid hemorrhage which may be venous in nature, no evidence of large vessel occlusion or significant stenosis, no aneurysm identified - 03:05: We spoke to the transfer line from [facility], waiting for call back from Neurology. Called at 02:20. - Patient remains asymptomatic, neurologically intact, no headache, no neck pain, only complaining of some pressure when she moves. - Sign-out given to my colleague Dr. Salgado 320 am Patient with spontaneous subarachnoid bleed anterior to the right side of the socorro. Hemorrhage extends superiorly into the interpeduncular cistern and inferiorly along the anterior aspect of the medulla. With GCS of 15 no history of hypotension no trauma not on anticoagulation case discussed with Dr. Wilkins at [facility] neurologist will extra blood transfer for further evaluation Differential Diagnosis Differential Diagnoses: The differential diagnosis associated with the presentation includes ( aneurysm rupture, subarachnoid hemorrhage,) Admission/Observation Consideration of admission/observation: Escalation of care including admission/observation considered ( transfer considered to [facility]) Consult Healthcare Provider Management of the patient was discussed with: Cardiovascular Technician Lab Data MDM Lab Attestation statement: I reviewed the patient's lab results. 05/23/24 19:00 05/23/24 19:00 Labs: Lab Results 05/23/24 Range/Units 19:00 WBC 10.3 (4.8-10.8) X10*3/uL RBC 5.03 (4.20-5.50) X10*6/uL Hgb 14.4 (12.0-16.0) g/dl Hct 42.7 (37.0-47.0) % MCV 84.9 (80.0-98.0) fL MCH 28.6 (27.0-33.0) pg MCHC 33.7 (31.0-35.0) g/dl RDW 12.2 (11.0-16.0) % Plt Count 202 (160-400) X10*3/uL MPV 10.9 (9.4-12.3) fL Immature Gran % (Auto) 0.3 (0.0-0.4) % Neut % (Auto) 68.7 (45-73) % Lymph % (Auto) 22.5 (20-40) % Lee % (Auto) 6.7 (2-11) % Eos % (Auto) 1.4 (0-4) % Baso % (Auto) 0.4 (0-2) % Lymph # (Auto) 2.3 (1.2-4.9) X10*3/uL Lee # (Auto) 0.7 (0.1-1.2) X10*3/uL Eos # (Auto) 0.1 (0.0-0.4) X10*3/uL Baso # (Auto) 0.0 (0.0-0.2) X10*3/uL Abs Immat Gran (auto) 0.03 (0.00-0.03) X10*3/uL Absolute Neuts (auto) 7.1 (2.0-8.3) x10*3/uL Absolute Nucleated RBC 0.000 (0.0-0.012) X10*3/uL Nucleated RBC % (auto) 0.0 (0.0-0.2) /100WBC PT 11.9 (10.9-12.4) SEC INR 1.0 (0.9-1.1) Sodium 140 (135-145) mmol/L Potassium 4.1 (3.3-5.1) mmol/L Chloride 107 (96-108) mmol/L Carbon Dioxide 24 (22-29) mmol/L Anion Gap 13 (12-20) BUN 14 (9-16) mg/dL Creatinine 0.96 (0.5-1.4) mg/dL Estim Creat Clear Calc 86.0 Estimated GFR > 60 Random Glucose 122 H (60-115) mg/dL Calcium 9.6 (8.4-10.2) mg/dL Magnesium 1.7 (1.6-2.6) mg/dL Total Bilirubin 0.6 (0.0-1.0) mg/dL AST 29 (5-31) U/L ALT 22 (0-31) U/L Alkaline Phosphatase 101 (39-117) U/L Troponin I High Sens < 2.7 (<3.5-17.0) ng/L Total Protein 7.0 (6.5-8.0) g/dL Albumin 4.3 (3.5-5.0) g/dL Independent Interpretation I performed an independent interpretation of an: CT Scan Radiology Impression Discussion of test interpretation with radiology: I have reviewed the radiologist's reading. Radiologist Impression: There is a small volume of subarachnoid hemorrhage anterior to the right side of the socorro. Hemorrhage extends superiorly into the interpeduncular cistern and inferiorly along the anterior aspect of the medulla. No evidence of large vessel occlusion or significant stenosis in the head and neck. No aneurysm is identified. Consider perimesencephalic subarachnoid hemorrhage which may be venous in nature. Critical Care Time Critical Care Time Critical Care Time: Yes Total Critical Care Time: 90 Attestation: I have personally provided critical care time. Time includes review of lab data, radiology results, discussion with consultants, and monitoring for potential decompensation. Intervention performed as documented. Discharge Plan Discharge Clinical Impression: Subarachnoid bleed Patient Disposition: [facility] Transfer Details: [facility] Dr. Wilkins Prescriptions: No Action No Known Home Meds Print Language: Tongan
--- NOTE | 2024-05-23 18:36 | ECG_ITS ---
Test Reason : HEADACHE Blood Pressure : / mmHG Vent. Rate : 065 BPM Atrial Rate : 070 BPM P-R Int : 000 ms QRS Dur : 156 ms QT Int : 452 ms P-R-T Axes : 000 -62 087 degrees QTc Int : 470 ms Ventricular-paced rhythm Abnormal ECG No previous ECGs available Referred By: Michelle Gordon Electronically Signed By:Francois William
[2024-05-23 19:06] LABS: MANUAL DIFF FLAG NO
[2024-05-23 19:08] LABS: Basophils Percent Auto 0.4 % (0-2); Eosinophils Absolute Auto 0.1 X10*3/uL (0.0-0.4); Eosinophils Percent Auto 1.4 % (0-4); Hematocrit 42.7 % (37.0-47.0); Hemoglobin 14.4 g/dl (12.0-16.0); Imm Gran Abs Auto 0.03 X10*3/uL (0.00-0.03); Imm Gran Pct Auto 0.3 % (0.0-0.4); Lymphocytes Absolute Auto 2.3 X10*3/uL (1.2-4.9); Lymphocytes Percent Auto 22.5 % (20-40); Mean Corpuscular HGB Conc 33.7 g/dl (31.0-35.0); Mean Corpuscular Hemoglobin 28.6 pg (27.0-33.0); Mean Corpuscular Volume 84.9 fL (80.0-98.0); Mean Platelet Volume 10.9 fL (9.4-12.3); Monocytes Absolute Auto 0.7 X10*3/uL (0.1-1.2); Monocytes Percent Auto 6.7 % (2-11); Neutrophils Absolute Auto 7.1 x10*3/uL (2.0-8.3); Neutrophils Percent Auto 68.7 % (45-73); Platelet Count 202 X10*3/uL (160-400); Red Blood Count 5.03 X10*6/uL (4.20-5.50); Red Cell Distribution Width 12.2 % (11.0-16.0); White Blood Count 10.3 X10*3/uL (4.8-10.8)
[2024-05-23 19:13] LABS: Prothrombin Time 11.9 SEC (10.9-12.4)
[2024-05-23 19:23] LABS: Alanine Aminotransferase 22 U/L (0-31); Albumin Level 4.3 g/dL (3.5-5.0); Alkaline Phosphatase 101 U/L (39-117); Anion Gap 13 (12-20); Aspartate Amino Transferase 29 U/L (5-31); Bilirubin Total 0.6 mg/dL (0.0-1.0); Blood Urea Nitrogen 14 mg/dL (9-16); Calcium 9.6 mg/dL (8.4-10.2); Carbon Dioxide 24 mmol/L (22-29); Chloride 107 mmol/L (96-108); Estimated Glomerular Filt Rate > 60; Glucose Random 122 mg/dL (60-115); Magnesium 1.7 mg/dL (1.6-2.6); Potassium 4.1 mmol/L (3.3-5.1); Sodium 140 mmol/L (135-145)
[2024-05-23 19:27] LABS: Troponin-I High Sensitivity < 2.7 ng/L (<3.5-17.0)
[2024-05-23 19:28] VITALS: BP 146/65; PULSE 65; RESP 18; TEMP 36.6; O2SAT 97
--- NOTE | 2024-05-23 19:36 | PC.NURSE ---
Patient reports she stood from bed yesterday around 12pm and felt like her back was locked and had a stiff neck w/ a shooting pain towards her head. patient reports hear whooshing sound when laying down. intermittent head and neck pain since, c/o tingling to right hand as well as tingling to upper lip extending to left cheek. neuros intact, denies vision changes, PERRLA. patient denies blood thinners. Dr. Amor at bedside and updating patient on results of CT and plan of care.
[2024-05-23 19:50] VITALS: RESP 16
[2024-05-23] MEDS: Morphine Sulfate 2 MG/ML CARTRIDGE IVPUSH (19:50)
[2024-05-23 20:28] VITALS: BP 143/72; PULSE 65; RESP 16; O2SAT 97
[2024-05-23] MEDS: Famotidine/PF 20 MG/2 ML VIAL IVPUSH (20:29)
[2024-05-23] MEDS: methylPREDNISolone Sod Succ 125 MG/2 ML VIAL IVPUSH (20:29)
[2024-05-23] MEDS: diphenhydrAMINE HCL 50 MG/ML VIAL IVPUSH (20:29)
--- NOTE | 2024-05-23 20:42 | PC.NURSE ---
patient premedicated prior to CT with contrast r/t allergy (rash) to IV contrast.
--- NOTE | 2024-05-23 21:08 | PC.NURSE ---
patient to CT at this time
[2024-05-23] MEDS: iohexoL 350 MG/ML 100 ML INFUS..BTL 70 ML IV (21:25)
[2024-05-23 21:27] VITALS: BP 122/59; PULSE 65; RESP 16; O2SAT 96
--- NOTE | 2024-05-23 21:27 | PC.NURSE ---
patient returned from CT. skin flush, warm dry. resp even and non labored. speaking in full, clear sentences. neuros remain intact.
[2024-05-23 22:47] VITALS: BP 110/65; PULSE 65; RESP 16; TEMP 36.6; O2SAT 96
--- NOTE | 2024-05-23 22:49 | PC.NURSE ---
patient awake and alert. skin flush, warm, dry, resp even and non labored. speaking in full, clear sentences. reports 1/10 neck pain. states that tingling in right hand is resolved at this time and that tingling to upper lip is improving. awaiting results of CTA. neuros intact w/ no changes to neuro assessment
--- NOTE | 2024-05-24 | PC.NURSE ---
This property underwriter assumed care of this Pt at 2300. Pt A&Ox3, reports 2/10 pain to neck/back worsening with movements such as standing up and intermittent headache to top of head/frontal area. Pt reports improvement of left top lip tingling and bilateral hands. Neuros intact. Pt able to ambulate to W/C and brought to [facility].
[2024-05-24 00:46] VITALS: BP 130/70; PULSE 65; RESP 14; O2SAT 95
[2024-05-24] MEDS: diazePAM 2 MG TABLET PO (00:47)
[2024-05-24 02:22] VITALS: BP 150/66; PULSE 65; RESP 18; TEMP 36.5; O2SAT 96
[2024-05-24 03:41] LABS: COVID-19 Test Negative (Negative); IDNOW Serial# 08D9AD1C
[2024-05-24 03:43] VITALS: BP 150/66; PULSE 65; RESP 18; TEMP 36.5; O2SAT 96
--- NOTE | 2024-05-24 03:45 | PC.NURSE ---
Report given to Daysi at [facility]. Pt will be transported via ambulance, /Pt aware of plan.
== END 2024-05-24 04:31 | disposition short-term general hospital (02) ==
PROVIDERS: Internal Medicine; Physician Assistant Medical; Emergency Provider Emergency Medicine; PCP Internal Medicine
DX: I60.9 Nontraumatic subarachnoid hemorrhage, unspecified (principal); R51.9 Headache, unspecified; Z95.0 Presence of cardiac pacemaker
CPT/HCPCS: 36415; 70450; 70496; 70498; 80053; 83735; 84484; 85025; 85610; 87635; 93005; 99285; J1200; J2270; J2919; Q9967

== ENCOUNTER → 2024-05-23 18:36 | Outpatient (BNV) | payer OTHER, SELFPAY | PROVIDERS: Emergency Provider Emergency Medicine; PCP Internal Medicine; Visit Provider Internal Medicine Cardiovascular Disease | DX: R94.31 Abnormal electrocardiogram [ECG] [EKG] (principal) | CPT/HCPCS: 93010 ==

== ENCOUNTER → 2024-06-02 14:41 | Outpatient (REF) | payer OTHER, SELFPAY ==
--- NOTE | 2024-06-02 14:52 | CA_ITS ---
Transthoracic Echocardiogram Patient (Last, First, Middle): Cris Martinez A Gender: Female Date of : 1975 Age: 48 Procedure Date: 06/02/2024 Procedure Type: Transthoracic Echocardiogram Location: OP Height: 165.1 cm Weight: 110.22 kg BSA: 2.15 m2 Heart Rate: bpm BP: 142 / 76 mmHg Regional Service Manager: ZARIA Referring MD: Sherwin Conroy MD Symptoms: I36.1 - Nonrheumatic tricuspid (valve) insufficiency Study Quality: Adequate ECG Rhythm: Undetermined Conclusions: - The left ventricular systolic function is normal. The visually estimated ejection fraction is between 60-65%. - No obvious valvular pathology seen on this study. Findings Left Ventricle Normal left ventricular cavity size. There is normal left ventricular wall thickness. The left ventricular systolic function is normal. The visually estimated ejection fraction is between 60-65%. Diastolic function is indeterminate on the basis of available data. Right Ventricle Normal right ventricular cavity size and systolic function. Atria Both atria are normal in size. Aortic Valve The aortic valve was not well visualized. There is no aortic valve stenosis. There is no aortic valve regurgitation. Mitral Valve The mitral valve appears normal. There is no mitral valve regurgitation. There is no mitral valve stenosis. Pulmonic Valve The pulmonic valve is likely normal. Tricuspid Valve There is mild tricuspid valve regurgitation. There is no evidence of pulmonary hypertension. Great Vessels The asc aorta and aortic arch are normal in size. Venous The inferior vena cava is normal in size and collapses greater than 50% with inspiration. Pericardium/Pleural There is no evidence of pericardial effusion. Prior Study Comparison No significant change compared to prior study dated: 02/07/2021. Recommendations, Care & Conclusions No obvious valvular pathology seen on this study. Measurements 2D Linear Measurements IVSd: 0.98 0.6-0.9/0.6-1.0 cm LVIDd: 4.21 3.9-5.3/4.2-5.9 cm LVIDd Index: 1.96 2.4-3.2/2.2-3.1 cm/m2 LVIDs: 2.57 2.0-3.6 cm LVPWd: 0.94 0.7-1.1 cm LA Diam: 3.40 2.7-3.8/3.0-4.0 cm LAIDs Index: 1.58 1.5-2.3 cm/m2 LV Mass: 162.07 67-162/88-224 g LV Mass Index: 75.38 43-95/49-115 g/m2 LVOT Diam: 2.00 3.0+(-)1.3 cm 2D Systolic Function EF 4C: 63.80 >55% EF 2C: 61.90 >55% EF BiP: 62.20 >55% Mitral Valve MV Pk E: 0.87 MV PK A: 0.71 MV Decel Time: 287.00 E/A: 1.20 E'Lateral: 13.30 E'Medial: 5.98 E/E' Med: 14.60 E/E' Lat: 6.60 PHT: 84.00 MVA PHT: 2.62 Decel Tyler: 3.16 Aortic Valve AoV Pk Hola: 1.46 AoV Mn Hola: 0.99 AoV VTI: 0.37 AoV Pk Grad: 9.00 Aov Mn Grad: 4.00 SHAWN Cont.VTI: 2.15 LVOT LVOT Pk Hola: 1.31 LVOT Mn Hola: 0.89 LVOT VTI: 0.25 LVOT Pk Grad: 7.00 LVOT Mn Grad: 4.00 LVOT Diam: 2.00 LVOT Area: 3.14 Diastolic Function MV Pk E: 0.87 MV Pk A: 0.71 E/A: 1.20 E'Medial: 5.98 E/E' Med: 14.60 E' Laterial: 13.30 E/E' Lat: 6.60 Right Ventricle TAPSE (mm): 19.60 TVS' Hola: 11.10 Tricuspid Valve TR Pk Hola: 2.59 TR Pk Grad: 27.00 RA Press: 3.00 RVSP: 30.00 Great Vessels Aorta Ao Asc: 3.20 2.1-3.4 cm Ao Arch: 3.00 Updated in Other Vendor System with Status of Final Sherwin Conroy MD electronically signed on 06/05/2024 12:51:55 PM with status of Final
== END ==
LOC: HO.CARD 14:41
PROVIDERS: PCP Internal Medicine; Visit Provider Internal Medicine
DX: I36.1 Nonrheumatic tricuspid (valve) insufficiency (principal); I45.9 Conduction disorder, unspecified; Z95.0 Presence of cardiac pacemaker
CPT/HCPCS: 93306

== ENCOUNTER → 2024-06-02 14:52 | Outpatient (BNV) | payer OTHER, SELFPAY | PROVIDERS: PCP Internal Medicine; Visit Provider Internal Medicine | DX: I36.1 Nonrheumatic tricuspid (valve) insufficiency (principal) | CPT/HCPCS: 93306 ==

== ENCOUNTER 2024-06-14 08:35 | Outpatient (REF) | payer OTHER, SELFPAY ==
[2024-06-14 10:11] LABS: MANUAL DIFF FLAG NO
[2024-06-14 10:20] LABS: Basophils Absolute Auto 0.1 X10*3/uL (0.0-0.2); Basophils Percent Auto 0.7 % (0-2); Eosinophils Absolute Auto 0.1 X10*3/uL (0.0-0.4); Eosinophils Percent Auto 1.5 % (0-4); Hematocrit 43.4 % (37.0-47.0); Hemoglobin 14.4 g/dl (12.0-16.0); Imm Gran Abs Auto 0.02 X10*3/uL (0.00-0.03); Imm Gran Pct Auto 0.3 % (0.0-0.4); Lymphocytes Absolute Auto 1.5 X10*3/uL (1.2-4.9); Lymphocytes Percent Auto 19.8 % (20-40); Mean Corpuscular HGB Conc 33.2 g/dl (31.0-35.0); Mean Corpuscular Hemoglobin 28.6 pg (27.0-33.0); Mean Corpuscular Volume 86.3 fL (80.0-98.0); Monocytes Absolute Auto 0.5 X10*3/uL (0.1-1.2); Neutrophils Absolute Auto 5.2 x10*3/uL (2.0-8.3); Neutrophils Percent Auto 70.7 % (45-73); Platelet Count 252 X10*3/uL (160-400); Red Blood Count 5.03 X10*6/uL (4.20-5.50); Red Cell Distribution Width 12.3 % (11.0-16.0); White Blood Count 7.3 X10*3/uL (4.8-10.8)
[2024-06-14 10:45] LABS: Alanine Aminotransferase 22 U/L (0-31); Albumin Level 4.2 g/dL (3.5-5.0); Alkaline Phosphatase 115 U/L (39-117); Anion Gap 13 (12-20); Aspartate Amino Transferase 21 U/L (5-31); Bilirubin Total 0.4 mg/dL (0.0-1.0); Blood Urea Nitrogen 11 mg/dL (9-16); Calcium 9.4 mg/dL (8.4-10.2); Carbon Dioxide 25 mmol/L (22-29); Chloride 105 mmol/L (96-108); Cholesterol 157 mg/dL (<200); Estimated Glomerular Filt Rate > 60; Glucose Fasting 135 mg/dL (60-99); HDL Cholesterol 50 mg/dL (>40); LDL Cholesterol Calculated 77 mg/dL (<100); Potassium 4.2 mmol/L (3.3-5.1); Sodium 139 mmol/L (135-145); Total Protein 7.3 g/dL (6.5-8.0); Triglycerides 150 mg/dL (<150)
[2024-06-14 10:55] LABS: Estimated Average Glucose 137 mg/dL; Hemoglobin A1C 180.9609 umol/L; Hemoglobin A1c % 6.4 % (<6.0); Total Hemoglobin (HGBA1C) 3935.8413 umol/L
[2024-06-14 10:58] LABS: Creatinine Urine 529.59 mg/dL; Microalbum/Creatinine Ratio Ur 12.2 ug/mg cr (<30)
[2024-06-14 11:24] LABS: Free T4 (Free Thyroxine) 1.05 ng/dL (0.71-1.85)
== END 2024-06-14 08:36 | disposition home or self-care (01) ==
LOC: HO.HMGCLDS 08:35
PROVIDERS: PCP Internal Medicine; Visit Provider Internal Medicine
DX: I10 Essential (primary) hypertension (principal); R73.03 Prediabetes; R63.5 Abnormal weight gain
CPT/HCPCS: 36415; 80053; 80061; 82043; 82570; 83036; 84439; 85025; 93280

== ENCOUNTER 2024-06-14 14:33 | Outpatient (AMB) | payer OTHER, SELFPAY ==
[2024-06-14 14:48] VITALS: BP 120/70; PULSE 65; BMI 39.3
--- NOTE | 2024-06-14 14:48 | A.OFFVIS_ITS ---
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 Per patient, she has had a pacemaker since age of 6 or so. She apparently passed out around that time at which time she was thought to have possibly heart block. Then she underwent pacemaker placement. Initially it appears that she had an epicardial pacemaker in the abdomen. Then that was changed to a right pectoral pacemaker at some point and then currently it is in the left pectoral area. She has had several generator changes over time. She was recently at [facility] with subarachnoid hemorrhage when she apparently also had elevated blood pressure. She was then started on amlodipine. She is awaiting a follow-up appointment with neuro interventionalist. Otherwise, no cardiac symptoms. [facility] Medical History Heart block Surgical History History of bilateral tubal ligation H/O unilateral oophorectomy History of cardiac pacemaker History of endometrial ablation Family History Father Diabetes Mother Ovarian cancer Social History Alcohol intake: current Alcohol intake frequency: holidays/special occasions only Patient Tobacco Use Status: Never used Tobacco Sexual orientation: Straight/Heterosexual Gender identity: Female Review of Systems Const Denies chills, Denies fatigue, Denies fever(s), Denies frequent falls, Denies weakness, Denies weight gain and Denies weight loss ENT Denies dizziness Card Denies chest pain, Denies leg edema, Denies lightheadedness, Denies palpitations, Denies dyspnea and Denies dyspnea on exertion Resp Denies cough, Denies dyspnea and Denies dyspnea on exertion GI Denies hematochezia Musc Denies abnormal gait, Denies muscle weakness, Denies numbness, Denies radiating pain into limb and Denies tingling Neuro Denies abnormal gait, Denies dizziness, Denies frequent falls, Denies numbness, Denies tingling and Denies weakness Endo Denies fatigue and Denies palpitations Physical Exam Vital Signs: Last Vital Signs Pulse 65 06/14/24 14:48 BP 120/70 06/14/24 14:48 BMI result Body Mass Index 39.3 Const General: comfortable and no acute distress Orientation/consciousness: patient oriented x3 HEENT Other: Unremarkable Head: Yes normal to inspection Neck Neck: Yes normal visual inspection Chest Chest palpation & inspection: normal inspection of the chest Resp Auscultation: clear to auscultation bilaterally Cardio Palpation: normal PMI Heart sounds: S1 normal heart sound present, S2 normal heart sound present, no gallops, no murmurs and no rubs GI Palpation (GI): Soft to palpation Back/Spine/Pelvis Other: unremarkable Skin General skin exam: no rashes or lesions noted Neuro General: patient oriented x3 Extrem General: Yes normal to inspection Psych Mental Status: mental status grossly normal Office Procedures Cardiac Device Check Cardiac Device Check Details: Pacemaker interrogated today. Dual-chamber device, programmed VVI as it reached LINDA on 02/20/2024. Normal RV lead parameters. Not pacer dependent, at VVI 40. Otherwise, she is V paced > 99%. [id number] Cardiac Device Check, pacemaker dual lead Procedure code (CPT) selection complete Assessment & Plan Assessment & Plan (1) Heart block: Code(s): I45.9 - Conduction disorder, unspecified Category: Medical (2) Pacer at end of battery life: Code(s): Z45.010 - Encounter for checking and testing of cardiac pacemaker pulse generator [battery] Category: Medical (3) Primary hypertension: Code(s): I10 - Essential (primary) hypertension Category: Medical Plan Echocardiogram with LVEF of 60-65%. No wall motion abnormalities or other significant findings. With regard to pacemaker, has reached LINDA and hence we will request urgent generator change. Discussed with Dr. Chalhoub about this and he will make arrangements. For hypertension, continue amlodipine. Coding Level of Care Code Est Pt Level 4 (74571) Diagnoses Heart block I45.9 Pacer at end of battery life Z45.010 Primary hypertension I10 CPT Codes Cardiac Device Check - Cardiac Device 2: [id number]-[id number] Cardiac Device Check, pacemaker dual lead ([id number])
== END 2024-06-14 15:54 | disposition home or self-care (01) ==
PROVIDERS: PCP Internal Medicine; Visit Provider Internal Medicine
DX: I45.9 Conduction disorder, unspecified (principal); Z45.010 Encounter for checking and testing of cardiac pacemaker pulse generator [battery]; I10 Essential (primary) hypertension
CPT/HCPCS: 93280; 99214

== ENCOUNTER → 2024-07-19 12:36 | Outpatient (BNVA) | payer OTHER, SELFPAY | PROVIDERS: PCP Internal Medicine; Visit Provider Nurse Practitioner Family ==

== ENCOUNTER → 2024-08-25 23:59 | Outpatient (BNV) | payer OTHER, SELFPAY ==
--- NOTE | 2024-08-29 11:25 | A.OFFVIS_ITS ---
Intake Visit Reasons: Remote Device Check- [employer] Allergies Penicillins [PENICILLINS] Allergy (Intermediate, Verified 05/23/24 18:36) rash IV contrast Allergy (Unknown, Uncoded 12/10/21 13:34) UNKNOWN [facility] Medical History Heart block Surgical History History of bilateral tubal ligation H/O unilateral oophorectomy History of cardiac pacemaker History of endometrial ablation Family History Father Diabetes Mother Ovarian cancer Social History Alcohol intake: current Alcohol intake frequency: holidays/special occasions only Patient Tobacco Use Status: Never used Tobacco Sexual orientation: Straight/Heterosexual Gender identity: Female Office Procedures Cardiac Device Check Cardiac Device Check Details: Date of service- 08/25/2024 ; Battery life >12 years; normal lead parameters; AP 18%; POTLINE MONITOR 98%; no significant arrhythmias. Overall normal device function. [id number] Cardiac Device Interrogation, pacemaker Procedure code (CPT) selection complete Assessment & Plan Assessment & Plan (1) Presence of cardiac pacemaker: Code(s): Z95.0 - Presence of cardiac pacemaker Category: Medical (2) Heart block: Code(s): I45.9 - Conduction disorder, unspecified Category: Medical Plan x Coding Level of Care Code Procedure Only Diagnoses Presence of cardiac pacemaker Z95.0 Heart block I45.9 CPT Codes Cardiac Device Check - Cardiac Device 12: [id number] Cardiac Device Interrogation, pacemaker ([id number])
== END ==
PROVIDERS: PCP Internal Medicine; Visit Provider Internal Medicine
DX: I45.9 Conduction disorder, unspecified (principal); Z95.0 Presence of cardiac pacemaker
CPT/HCPCS: 93294

== ENCOUNTER 2024-09-13 12:33 | Outpatient (AMB) | payer OTHER, SELFPAY ==
--- NOTE | 2024-09-13 12:35 | MHC.OFFVIS ---
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 Today she reports that in June she had a bleed in her brain and they found an aneurysm and a stent was placed. She has not had any issues since that time. Generator change for her pacemaker done in June as well. She has had some itching along her left upper chest scar. The area has no signs of infection, open skin or drainage. She has no chest discomfort at rest or with activity. No shortness of breath, heart palpitations, lightheadedness. She reports good activity tolerance. She does a sedentary type job. She does not do any routine exercise. Compliant with meds. [facility] Medical History Heart block Surgical History History of bilateral tubal ligation H/O unilateral oophorectomy History of cardiac pacemaker History of endometrial ablation Family History Father Diabetes Mother Ovarian cancer Social History Alcohol intake: current Alcohol intake frequency: holidays/special occasions only Patient Tobacco Use Status: Never used Tobacco Sexual orientation: Straight/Heterosexual Gender identity: Female Review of Systems Const All systems reviewed & are unremarkable except as noted in HPI and below ENT Denies dizziness Card Denies chest pain, Denies chest pain at rest, Denies chest pain with activity, Denies rapid heart rate, Denies pedal edema, Denies edema, Denies leg edema, Denies lightheadedness, Denies palpitations, Denies dyspnea, Denies dyspnea on exertion and Denies orthopnea Resp Denies cough, Denies dyspnea and Denies dyspnea on exertion GI Denies hematochezia and Denies change in stool character Musc Denies abnormal gait, Denies limited range of motion, Denies muscle cramps, Denies muscle weakness, Denies numbness, Denies radiating pain into limb, Denies stiffness and Denies tingling Neuro Denies abnormal gait, Denies dizziness, Denies numbness and Denies tingling Endo Denies palpitations Physical Exam Vital Signs: Last Vital Signs Pulse 101 H 09/13/24 12:36 BP 140/82 H 09/13/24 12:36 BMI result Body Mass Index 40.0 Const General: cooperative, healthy appearing, comfortable and no acute distress Orientation/consciousness: patient oriented x3 Neck Neck: Yes normal visual inspection Chest Other: pacemaker site left upper chest with reddish keloid type scarring of incision line - no skin breaks or signs of infection Resp Effort & Inspection: normal respiratory effort Auscultation: clear to auscultation bilaterally, no crackles, no rales, no rhonchi and no wheezes Cardio Jugular venous distension: no JVD Rate: regular rate Rhythm: regular rhythm Heart sounds: S1 normal heart sound present, S2 normal heart sound present, no murmurs and no rubs Neuro General: patient oriented x3 Extrem General: Yes normal to inspection Psych Appearance: grossly normal Mental Status: mental status grossly normal Speech and movement: Normal speech and movement present Office Procedures Cardiac Device Check Cardiac Device Check Details: [employer] dual-chamber pacemaker interrogation shows battery 12.1 years, DDD mode, low rate 50, right atrial threshold 0.75 volts at 0.4 milliseconds, RV threshold 1 volt at 0.4 milliseconds, a paced 16.3%, V paced 98.5% no alerts [id number] Cardiac Device Check, pacemaker dual lead Procedure code (CPT) selection complete EKG Details: Today, read by me, atrial sensed, ventricular paced rhythm, rate 101 [id number], Complete Assessment & Plan Assessment & Plan (1) Presence of cardiac pacemaker: Comment: [facility] Code(s): Z95.0 - Presence of cardiac pacemaker Category: Medical Plan: Long history of cardiac pacemaker placement. She recently underwent a generator change. She has a keloid scar appearance to her Gen change site. She says the area is itchy at times. No signs of infection or open skin. Instructed her to not scratch the area as that may introduce bacteria. Notify us if she has ongoing concerns. Device interrogation today shows it is functioning normally. Battery has 12 years. She V paces 98.5% of the time. Last echo done 06/02/2024 showed EF 60-65%, no valve abnormalities. She has remote monitoring for her device. Next office interrogation due in 1 year, sooner if needed. (2) Primary hypertension: Code(s): I10 - Essential (primary) hypertension Category: Medical Plan: Newer diagnosis of hypertension. She reports that last June she was started on amlodipine. Blood pressure is mildly elevated today at 140/82. Reviewed the benefits of low-salt diet, weight loss, increasing physical activity. She does have a PCP follow-up next month. Blood pressure remains elevated her amlodipine dose can be increased or alternate agent added. (3) Heart block: Code(s): I45.9 - Conduction disorder, unspecified Category: Medical Plan: Pacemaker in place Plan Time spent on chart review, documentation, interview and assessment Coding Level of Care Code Est Pt Level 4 (94991) Complex EM visit Add On G2211 Diagnoses Presence of cardiac pacemaker Z95.0 Primary hypertension I10 Heart block I45.9 CPT Codes Cardiac Device Check - Cardiac Device 2: 53352-GQ Cardiac Device Check, pacemaker dual lead ([id number]) EKG - CPT: 83582-[id number], Complete ([id number]) Time Spent (min) 28
[2024-09-13 12:36] VITALS: BP 140/82; PULSE 101; BMI 40.0
== END 2024-09-13 12:59 | disposition home or self-care (01) ==
PROVIDERS: PCP Internal Medicine; Visit Provider Nurse Practitioner Family
DX: I10 Essential (primary) hypertension (principal); Z95.0 Presence of cardiac pacemaker; I45.9 Conduction disorder, unspecified
CPT/HCPCS: 93010; 93280; 99214

== ENCOUNTER → 2024-09-13 12:33 | Outpatient (BNVA) | payer OTHER, SELFPAY | PROVIDERS: PCP Internal Medicine; Visit Provider Nurse Practitioner Family | DX: I10 Essential (primary) hypertension (principal); I45.9 Conduction disorder, unspecified; Z45.018 Encounter for adjustment and management of other part of cardiac pacemaker | CPT/HCPCS: 93005; 93280 ==

== ENCOUNTER 2024-10-26 12:58 | Outpatient (REF) | payer OTHER, SELFPAY ==
[2024-10-26 16:32] LABS: Hematocrit 43.4 % (37.0-47.0); Hemoglobin 14.7 g/dl (12.0-16.0); Mean Corpuscular HGB Conc 33.9 g/dl (31.0-35.0); Mean Corpuscular Hemoglobin 28.2 pg (27.0-33.0); Mean Corpuscular Volume 83.3 fL (80.0-98.0); Mean Platelet Volume 10.2 fL (9.4-12.3); Platelet Count 288 X10*3/uL (160-400); Red Blood Count 5.21 X10*6/uL (4.20-5.50); Red Cell Distribution Width 12.3 % (11.0-16.0); White Blood Count 8.2 X10*3/uL (4.8-10.8)
[2024-10-26 16:45] LABS: Estimated Average Glucose 140 mg/dL; Hemoglobin A1c % 6.5 % (<6.0)
[2024-10-26 17:07] LABS: Alanine Aminotransferase 22 U/L (0-31); Albumin Level 4.4 g/dL (3.5-5.0); Alkaline Phosphatase 116 U/L (39-117); Anion Gap 13 (12-20); Aspartate Amino Transferase 29 U/L (5-31); Bilirubin Direct 0.2 mg/dL (0.0-0.5); Bilirubin Total 0.4 mg/dL (0.0-1.0); Blood Urea Nitrogen 11 mg/dL (9-16); Calcium 9.7 mg/dL (8.4-10.2); Carbon Dioxide 26 mmol/L (22-29); Chloride 105 mmol/L (96-108); Cholesterol 184 mg/dL (<200); Estimated Glomerular Filt Rate > 60; Glucose Random 94 mg/dL (60-115); HDL Cholesterol 63 mg/dL (>40); LDL Cholesterol Calculated 82 mg/dL (<100); Potassium 3.9 mmol/L (3.3-5.1); Sodium 140 mmol/L (135-145); Total Protein 7.6 g/dL (6.5-8.0); Triglycerides 198 mg/dL (<150)
[2024-10-26 17:17] LABS: Free T4 (Free Thyroxine) 1.01 ng/dL (0.71-1.85); Thyroid Stimulating Hormone 0.82 uIU/mL (0.32-4.0); Vitamin D 25-OH Total 23.7 ng/mL (>30)
[2024-10-26 17:42] LABS: Creatinine Urine 132.14 mg/dL; Microalbum/Creatinine Ratio Ur 68.1 ug/mg cr (<30)
[2024-10-26 18:34] LABS: CT PCR NOT DETECTED (Not Detect.); NG PCR NOT DETECTED (Not Detect.)
[2024-10-27 04:05] LABS: Hepatitis A Antibody IgG Nonreactive (Nonreactive); ~Hepatitis A Antibody IgG 0.49 S/CO (0.00-0.99)
[2024-10-27 04:08] LABS: HBS Num1 0.12 mIU/mL (0-7.99); HBc Num1 0.14 S/CO (0.00-0.79); HBsAGNum1 0.31 S/CO (0.00-0.99); HIV AB/AG Nonreactive (Nonreactive); HIV Num 1 0.07 S/CO (0.00-0.99); Hepatitis B Core Antibody Nonreactive (Nonreactive); Hepatitis B Surface Antigen Negative (Negative); ~HepC Num1 0.24 S/CO (0.00-0.79); ~Hepatitis B Surface Antibody NONREACTIVE (Nonreactive); ~Hepatitis C Antibody Nonreactive (Nonreactive)
[2024-10-27 09:53] LABS: RPR Rapid Plasma Reagin NON-REACTIVE (NON-REACTIVE)
== END 2024-10-26 12:59 | disposition home or self-care (01) ==
LOC: HO.HHCL 12:58
PROVIDERS: Visit Provider Family Medicine
DX: Z00.00 Encounter for general adult medical examination without abnormal findings (principal); I10 Essential (primary) hypertension
CPT/HCPCS: 80048; 80061; 80076; 82043; 82306; 82570; 83036; 84439; 84443; 85027; 86592; 86704; 86706; 86708; 86803; 87340; 87389; 87491; 87591

== ENCOUNTER 2025-01-10 12:59 | Outpatient (AMB) | payer OTHER, SELFPAY ==
[2025-01-10 13:38] VITALS: BP 122/68; PULSE 72; BMI 39.9
--- NOTE | 2025-01-10 13:38 | A.OFFVIS_ITS ---
Vital Signs 01/10/25 13:38 Height 5 ft 5 in Weight 240 lb BMI 39.9 BP 122/68 Blood Pressure Location Lt brachial Position Sitting Pulse 72 Pulse Source Pulse Oximeter Intake Visit Reasons: 6 mth f/up w/ medtronic ck Allergies Penicillins [PENICILLINS] Allergy (Intermediate, Verified 10/27/24 13:51) rash IV contrast Allergy (Unknown, Uncoded 10/27/24 13:51) UNKNOWN Medication List - Last Reconciled 01/10/25 by Sherwin Conroy MD amlodipine 5 mg PO DAILY aspirin 81 mg PO DAILY atorvastatin 10 mg PO DAILY cetirizine 5 mg PO DAILY clopidogrel 75 mg PO DAILY lisinopril 10 mg PO DAILY sertraline 25 mg PO DAILY trazodone 50 mg PO DAILY HPI Comments Details: Cris is here for follow-up regarding her pacemaker. Per patient, she has had a pacemaker since age of 6 or so. She apparently passed out around that time at which time she was thought to have possibly heart block. Then she underwent pacemaker placement. Initially it appears that she had an epicardial pacemaker in the abdomen. Then that was changed to a right pectoral pacemaker at some point and then in the left pectoral area. She has had several generator changes over time, most recently from 2023. In 2023, she was admitted to [facility] with subarachnoid hemorrhage/hypertension. She underwent cerebral angiogram which apparently showed an incidental aneurysm but not thought to be related to subarachnoid hemorrhage. She has undergone neuro intervention for the same and was then put on aspirin/Plavix. Otherwise, she actually states she is feeling pretty good. She has got no overt cardiovascular symptoms. [facility] Medical History Heart block Surgical History History of bilateral tubal ligation H/O unilateral oophorectomy History of cardiac pacemaker History of endometrial ablation Family History Father Diabetes Mother Ovarian cancer Social History Alcohol intake: current Alcohol intake frequency: holidays/special occasions only Patient Tobacco Use Status: Never used Tobacco Sexual orientation: Straight/Heterosexual Gender identity: Female Review of Systems Const All systems reviewed & are unremarkable except as noted in HPI and below Reports as per HPI and Reports no additional complaints Eyes Reports as per HPI and Denies no additional complaints ENT Denies no additional complaints and Reports as per HPI Card Reports as per HPI, Reports no additional complaints, Denies acrocyanosis, Denies chest pain, Denies leg edema, Denies lightheadedness, Denies palpitations and Denies dyspnea Resp Reports as per HPI, Denies no additional complaints and Denies dyspnea GI Reports as per HPI and Denies no additional complaints Reports as per HPI Musc Reports no additional complaints and Reports as per HPI Skin/Breast Reports system reviewed and no additional complaints, except as documented Neuro Reports no additional complaints and Reports as per HPI Psych Reports no additional complaints and Reports as per HPI Endo Reports no additional complaints, Reports as per HPI and Denies palpitations Rob/Lymph Reports no additional complaints and Reports as per HPI Aller/Immun Reports no additional complaints and Reports as per HPI Physical Exam Vital Signs: Last Vital Signs Pulse 72 01/10/25 13:38 BP 122/68 01/10/25 13:38 BMI result Body Mass Index 39.9 Const General: comfortable and no acute distress Orientation/consciousness: patient oriented x3 HEENT Other: Unremarkable Head: Yes normal to inspection Neck Neck: Yes normal visual inspection Chest Chest palpation & inspection: normal inspection of the chest Resp Auscultation: clear to auscultation bilaterally Cardio Palpation: normal PMI Heart sounds: S1 normal heart sound present, S2 normal heart sound present, no gallops, no murmurs and no rubs GI Palpation (GI): Soft to palpation Back/Spine/Pelvis Other: unremarkable Skin General skin exam: no rashes or lesions noted Neuro General: patient oriented x3 Extrem General: Yes normal to inspection Psych Mental Status: mental status grossly normal Office Procedures Cardiac Device Check Cardiac Device Check Details: Pacemaker interrogated today. Dual-chamber device, programmed DDD. Battery status more than 11 years. Atrial pacing 7.4%. Ventricular pacing > 99%. Normal lead parameters. No episodes. Underlying complete heart block/ventricular pacing at 40/Min. Overall, normal device function. [id number] Cardiac Device Check, pacemaker dual lead Procedure code (CPT) selection complete Assessment & Plan Assessment & Plan (1) Encounter for interrogation of cardiac pacemaker: Code(s): Z45.018 - Encounter for adjustment and management of other part of cardiac pacemaker Category: Medical (2) Heart block: Code(s): I45.9 - Conduction disorder, unspecified Category: Medical (3) Primary hypertension: Code(s): I10 - Essential (primary) hypertension Category: Medical Plan Last echocardiogram with LVEF of 60-65%. No wall motion abnormalities or other significant findings. Pacemaker check today and with normal function. We will continue to monitor remotely and recheck in clinic in one year. With regard to blood pressure, on amlodipine/lisinopril. Blood pressure seems stable today. Discussion Notes During our discussion, I reviewed the management of the patient's hypertension, cerebral aneurysm, and pacemaker. We confirmed the continuation of her current medication regimen with amlodipine and lisinopril. The decision to continue aspirin and Plavix will be according to the neuro interventionalist.. I explained the ongoing stability and normal operation of her pacemaker, affirming the efficacy of the annual tamiko-based monitoring. We agreed on maintaining her existing follow-up schedule without additional interventions. The patient expressed understanding and consented to this plan. Patient was informed and verbally consented to the use of an ambient scribe for clinic note documentation during this visit. Patient Instructions: - Continue taking your current blood pressure medications (amlodipine and lisinopril) daily as prescribed. - Monitor your pacemaker using your tamiko as planned. - Report any new symptoms or concerns immediately. - We will continue yearly check-ups unless advised differently. Coding Level of Care Code Est Pt Level 3 (15162) Diagnoses Encounter for interrogation of cardiac pacemaker Z45.018 Heart block I45.9 Primary hypertension I10 CPT Codes Cardiac Device Check - Cardiac Device 2: [id number] Cardiac Device Check, pacemaker dual lead ([id number])
--- OUTSIDE RECORDS SUMMARY | 2025-01-10 14:40 | XMS_ITS | Encounter Summary ---
Author Organization [employer] Address [address] [place] [address] [address] [place] [address] Care Team Providers Care Senior Analysis Specialist Name Role Phone Tita Flores DO Primary Care Provider + [phone] Reason for Visit * Reason Comments Med Change Request Encounter Details Date Type Department Care Team ([facility] st Contact Info) Description 12/21/2024 Refill [facility] [address] [place] [address] Tita Flores DO [address] [place] [address] Social History Tobacco Use Types Packs/Day Years Used Date Smoking Tobacco: Never Smokeless Tobacco: Never Alcohol Use Standard Drinks/Week Comments Never 0 (1 standard drink = 0.6 oz pur e alcohol) Depression Answer Date Recorded Patient Health Questionnaire-9 Score 19 10/26/2024 Patient Health Questionnaire-9 Score 19 10/26/2024 Last PHQ-9: Questionnaire Data Not on file 0 10/26/2024 Housing Stability Answer Date Recorded What is your housing situation today? I have arturo casanova 10/18/[address] you li ve. Do you have problems with any of the following? None of the above 10/18/2024 Food Insecurity Answer Date Recorded Within the past 12 months, y ou worried that your food would run out before you got money to buy more: Never True 10/18/2024 Within the past 12 months,th e food you bought just didn't last and you didn't have enough money to get more: Never True Transportation Answer Date Recorded In the past 12 months, has l ack of transportation kept you from medical appts, meetings, work or from getting things needed for daily living? No 10/18/2024 Utilities Answer Date Recorded In the past 12 months, has t he electric, gas, oil or water company threatened to shut off services in your home? No 10/18/2024 Depression Answer Date Recorded Patient Health Questionnaire-2 Score 5 10/26/2024 Internet Access Answer Date Recorded Internet Access Q1 Yes 10/18/2024 Internet Access Q2 Not on file 10/18/2024 Comments No Sex and Gender Information Value Date Recorded Sex Assigned at Choose not to disclose 12:37 PM EDT Legal Sex Female 1:24 PM EST Gender Identity Female 11/04/2024 7:26 PM EDT Sexual Orientation Straight 11/04/2024 7: 26 PM EDT documented as of this encounter Plan of Treatment Not on file documented as of this encounter Visit Diagnoses Not on filedocumented in this encounter Additional Health Concerns Assessment Noted Time PHQ-9 Depression Total Score: 19 025 3:01 PM EDT documented as of this encounter Care Teams Senior Analysis Specialist Relationship Specialty Start Date End Date Tita Flores DO [address] [place] [id number] PCP - General Family Medicine 10/26/24 documented as of this encounter
== END 2025-01-10 13:54 | disposition home or self-care (01) ==
LOC: HO.HCS 13:00
PROVIDERS: PCP Internal Medicine; Visit Provider Internal Medicine
DX: I45.9 Conduction disorder, unspecified (principal); Z45.018 Encounter for adjustment and management of other part of cardiac pacemaker; I10 Essential (primary) hypertension
CPT/HCPCS: 93280; 99213

== ENCOUNTER → 2025-01-10 12:59 | Outpatient (BNVA) | payer OTHER, SELFPAY | PROVIDERS: PCP Internal Medicine; Visit Provider Internal Medicine | DX: Z45.018 Encounter for adjustment and management of other part of cardiac pacemaker (principal) | CPT/HCPCS: 93280 ==

== ENCOUNTER 2025-03-30 11:41 | Outpatient (REF) | payer OTHER, SELFPAY ==
--- NOTE | ~2025-03-30 | XR_ITS ---
EXAMINATION: XR KNEE, RIGHT CLINICAL INFORMATION: PAIN COMPARISON: None available. TECHNIQUE: AP lateral and sunrise views of the right knee. FINDINGS: There is joint space narrowing involving mostly the medial compartment with sclerosis along the articular surface of the medial tibial plateau. Small marginal osteophyte formation and medial femoral condyle and medial tibial plateau. No acute cortical disruption or malalignment. No gross suprapatellar bursa joint effusion. No lytic or blastic lesions. XR/XR knee RT 4V IMPRESSION: Medial compartment osteoarthrosis/osteoarthritis, mild to moderate. Electronically signed by: Delbert Hanson MD 03/30/2025 12:13 PM EDT
--- OUTSIDE RECORDS SUMMARY | 2025-03-30 10:45 | XMS_ITS | Encounter Summary ---
Author Organization [employer] Address [address] [place] [address] 7 [place] [address] Care Team Providers Care Scouring Machine Operator Name Role Phone Tita Flores DO Primary Care Provider + [phone] Encounter Details Date Type Department Care Team (Late st Contact Info) Description 03/30/2025 10:45 AM EDT Office Visit [facility] [address] [place] [address] Tita Flores DO [address] [place] [address] Type 2 diabetes mellitus without complication, without long-term current use of insulin (CMS/HCC) (Primary Dx); Essential hypertension; Complete heart block (CMS/HCC); Generalized anxiety disorder; Healthcare maintenance; Dietary counseling; Exercise counseling; Chronic pain of right knee Social History Tobacco Use Types Packs/Day Years [...] the past 12 months, has t he [employer], gas, oil or water company threatened to [...] PM EDT documented as of this encounter Last Filed Vital Signs Vital Sign Reading Time Taken Comments Blood Pressure 116/70 03/30/2025 10:43 AM EDT Pulse 60 03/30/2025 10:43 AM EDT Temperature 36.5 C (97.7 F) 03/30/2025 10:43 AM EDT Respiratory Rate 21 03/30/2025 10:43 AM EDT Oxygen Saturation 98% 03/30/2025 10:43 AM EDT Inhaled Oxygen Concentration - - Weight 110 kg (243 lb) 03/30/2025 10:43 AM EDT Height 165.1 cm (5' 5 ) 03/30/2025 10:43 AM EDT Body Mass Index 40.44 03/30/2025 10:43 AM EDT documented in this encounter Plan of Treatment Not on file documented as of this encounter Procedures Procedure Name Priority Date/Time Associated Diagnosis Comments XR KNEE 4+ VIEWS RIGHT Routine 03/30/2025 11:52 AM EDT Chronic pain of right knee POCT GLYCATED HEMOGLOBIN, TOTAL Routine 03/30/2025 10:45 AM EDT Type 2 diabetes mellitus without complication, without long-term current use of insulin ([facility]) POCT GLUCOSE Routine 03/30/2025 10:45 AM EDT Type 2 diabetes mellitus without complication, without long-term current use of insulin ([facility]) documented in this encounter Results * XR Knee 4+ Views Right (03/30/2025 11:52 AM EDT) Anatomical Region Laterality Modality Lower Extremities, Knee Right [facility] 03/30/2025 11:5 2 AM EDT Narrative 03/30/2025 12:16 [place] [address] XRay Report Signed Patient: Cris Martinez MR#: [id number] : 1975 Acct:[id number] Age/Sex: 49 / F ADM Date: 03/30/25 [facility]: Tita Flores DO Ordering Physician: Tita Flores DO Date of Service: 03/30/25 Procedure(s): XR knee RT 4V Accession Number(s): [id number] cc: Tita Flores DO EXAMINATION: XR KNEE, RIGHT CLINICAL INFORMATION: PAIN COMPARISON: None available. TECHNIQUE: AP lateral and sunrise views of the right knee. FINDINGS: There is joint space narrowing involving mostly the medial compartment with sclerosis along the articular surface of the medial tibial plateau. Small marginal osteophyte formation and medial femoral condyle and medial tibial plateau. No acute cortical disruption or malalignment. No gross suprapatellar bursa joint effusion. No lytic or blastic lesions. XR/XR knee RT 4V IMPRESSION: Medial compartment osteoarthrosis/osteoarthritis, mild to moderate. Electronically signed by: Delbert Hanson MD 03/30/2025 12:13 PM EDT RP Dictated By: Delbert Montoya MD Signed By: <Electronically signed by Delbert To MD in OV> 03/30/25 1213 DD/ 1152 TD/TT: 03/30/25 1200 Library Manager: Procedure Note Donotuseinterpreter, Image - 03/30/[address] [address] XRay Report Signed Patient: Cris Martinez AMR#: [id number] : 1975Acct:[id number] Age/Sex: 49 / FADM Date: 03/30/25 Loc: [facility] Attending Dr: Tita Flores DO Ordering Physician: Tita Flores DO Date of Service: 03/30/25 Procedure(s): XR knee RT 4V Accession Number(s): [id number] cc: Tita Flores DO EXAMINATION: XR KNEE, RIGHT CLINICAL INFORMATION: PAIN COMPARISON: None available. TECHNIQUE: AP lateral and sunrise views of the right knee. FINDINGS: There is joint space narrowing involving mostly the medial compartment with sclerosis along the articular surface of the medial tibial plateau. Small marginal osteophyte formation and medial femoral condyle and medial tibial plateau. No acute cortical disruption or malalignment. No gross suprapatellar bursa joint effusion. No lytic or blastic lesions. XR/XR knee RT 4V IMPRESSION: Medial compartment osteoarthrosis/osteoarthritis, mild to moderate. Electronically signed by: Delbert Hanson MD 03/30/2025 12:13 PM EDT Dictated By: Delbert Montoya MD Signed By: <Electronically signed by Delbert To MDin OV> 03/30/25 1213 DD/ 1152 TD/TT: 03/30/25 1200 Library Manager: Tita Flores DO IMG XR PROCEDURES Final Resu lt * (ABNORMAL) POCT HGB A1C (03/30/2025 10:45 AM EDT) Hemoglobin A1C 6.4(A) 4.0 - 5.7 % QC Media Lot # [id number] Lot# Expiration Date Blood 03/30/2025 10:4 5 AM EDT Tita Flores DO POINT OF CARE TEST ENTER/CANDIDA T ORDERABLES Final Result * POCT Glucose (03/30/2025 10:45 AM EDT) Glucose Blood, POC 135 60 - 200 mg/dL QC Media Lot # [id number] Lot# Expiration Date 016 Blood Capillary blood specimen / Unknown 03/30/2025 10:45 AM EDT Result [facility] Tita Flores DO POINT OF CARE TEST ENTER/CANDIDA T ORDERABLES Final Result documented in this encounter Visit Diagnoses Diagnosis Type 2 diabetes mellitus without complication, without long-term current use of insulin (CMS/HCC)- Primary Essential hypertension Unspecified essential hypertension Complete heart block (CMS/HCC) Atrioventricular block, complete Generalized anxiety disorder Healthcare maintenance Dietary counseling Dietary surveillance and counseling Exercise counseling Chronic pain of right knee documented in this encounter Additional Health Concerns Assessment Noted Time PHQ-9 Depression Total Score: 19 10/26/ 025 3:01 PM EDT documented as of this encounter Care Teams Scouring Machine Operator Relationship Specialty Start Date End Date Tita Flores DO [address] [place] [address] PCP - General Family Medicine 10/26/24 documented as of this encounter
--- OUTSIDE RECORDS SUMMARY | 2025-03-30 12:39 | XMS_ITS | Encounter Summary ---
Author Organization [employer] Address [address] [place] [address] 7 [place] [address] Care Team Providers Care Program Lead Name Role Phone Tita Flores DO Primary Care Provider + [phone] Reason for Visit * Reason Comments Med Refill Encounter Details Date Type Department Care Team ([facility] st Contact Info) Description 12/15/2024 Refill [facility] [address] [place] [address] Tita Flores DO [address] [place] [address] Social History Tobacco Use Types Packs/Day Years [...] documented as of this encounter Care Teams Program Lead Relationship Specialty Start Date End Date Tita Flores DO [address] [place] [address] PCP - General Family Medicine 10/26/24 documented as of this encounter
--- OUTSIDE RECORDS SUMMARY | 2025-03-30 12:39 | XMS_ITS | Encounter Summary ---
Author Organization [employer] Address [address] [facility] 7 [place] [address] Care Team Providers Care Photography Manager Name Role Phone Tita Flores DO Primary Care Provider + [phone] Reason for Visit * Reason Onset Date Comments Med Refill 01/04/2025 Encounter Details Date Type Department Care Team (Late st Contact Info) Description 01/04/2025 Refill [facility] [address] [place] [address] Tita Flores DO [address] [place], [place] [phone] Social History Tobacco Use Types Packs/Day Years [...] documented as of this encounter Care Teams Photography Manager Relationship Specialty Start Date End Date Tita Flores DO [address] [place] [address] PCP - General Family Medicine 10/26/24 documented as of this encounter
--- OUTSIDE RECORDS SUMMARY | 2025-03-30 12:39 | XMS_ITS | Encounter Summary ---
Author Organization [employer] Address [address] [place] [address] [address] [place] [address] Care Team Providers Care Armature Winder Helper Repair Name Role Phone Tita Flores DO Primary Care Provider + [phone] Reason for Visit * Reason Comments Med Change Request Encounter Details Date Type Department Care Team ([facility] st Contact Info) Description 12/21/2024 Refill [facility] [address] [place] [address] Tita Flores DO [address] [place] [address] Social History Tobacco Use Types Packs/Day Years [...] documented as of this encounter Care Teams Armature Winder Helper Repair Relationship Specialty Start Date End Date Tita Flores DO [address] [place] [address] PCP - General Family Medicine 10/26/24 documented as of this encounter
--- OUTSIDE RECORDS SUMMARY | 2025-03-30 12:39 | XMS_ITS | Encounter Summary ---
Author Organization [employer] Address [address] [facility] [address] [place] [address] Care Team Providers Care Pipe Fitter Supervisor Maintenance Name Role Phone Tita Flores DO Primary Care Provider + [phone] Reason for Visit * Reason Onset Date Comments Chart Prep 03/29/2025 Encounter Details Date Type Department Care Team ([facility] st Contact Info) Description 03/29/2025 Telephone [facility] [address] [place] [address] Tita Flores DO [address] [place] [address] Chart Prep Social History Tobacco Use Types Packs/Day Years [...] PM EDT documented as of this encounter Miscellaneous Notes * Telephone Encounter - Soledad Mukherjee [place] - 03/29/2025 8:39 AM EDT Chart Prep Labs: done Images: not applicable Referrals: not applicable Vaccines due: Covid, PCV20, Tdap, Hep B, and Zoster Screenings: colonoscopy, mammogram, eye exam, and foot exam Overdue care gaps: A1c/Glucose documented in this encounter Plan of Treatment Not on file documented as of this encounter Visit Diagnoses Not on filedocumented in this encounter Additional Health Concerns Assessment Noted Time PHQ-9 Depression Total Score: 19 10/26/ 025 3:01 PM EDT documented as of this encounter Care Teams Pipe Fitter Supervisor Maintenance Relationship Specialty Start Date End Date Tita Flores DO [address] [place] [address] PCP - General Family Medicine 10/26/24 documented as of this encounter
--- OUTSIDE RECORDS SUMMARY | 2025-03-30 12:39 | XMS_ITS | Clinical Summary ---
Author Organization [employer] Address [address] [place] [address] [address] [place] [address] Care Team Providers Care Epic [employer] Name Role Phone Sandra Tiat Primary Care Provider + [phone] Allergies Active Allergy Reactions Criticality Noted Date Comments Iodinated Contrast Media Hives,Rash Low 10/26/2024 Penicillin G Rash Low 11/23/2024 Penicillins Anaphylaxis High 10/26/2024 Medications * This document contains information received from the source organization and may not represent a complete record from that organization. amLODIPine (Norvasc) 5 MG tablet Take 5 mg by mouth Once per day. Active Aspirin Low Dose 81 MG EC tablet Take 81 mg by mouth Once per day. Active clopidogrel (Plavix) 75 MG tablet Take 75 mg by mouth Once per day. Active hydrOXYzine pamoate (Vistaril) 25 MG capsule Take 1 capsule (25 mg) by mouth every 6 (six) hours if needed for anxiety. 30 capsule 2 5 10/28/19 26 Active Blood Glucose Monitoring Suppl (ONE TOUCH ULTRA 2) w/Device kit Use to check BS as directed 1 kit 5 Active OneTouch Delica Lancets 33G misc Use to check BS daily 100 each 11 5 Active Alcohol Swabs 70 % pads Use when checking BS as directed 100 each 5 Active glucose blood (OneTouch Ultra) test strip USE TO CHECK BLOOD SUGAR ONCE DAILY DIRECTED 100 strip 12 5 Active Semaglutide,0.2 5 or 0.5MG/DOS, (Ozempic, 0.25 or 0.5 MG/DOSE,) 2 MG/3ML solution pen-injectorInd ications:New onset type 2 diabetes mellitus (CMS/HCC) Inject 0.25 mg under the skin 1 (one) time per week. 3 mL 3 5 Active atorvastatin (Lipitor) 10 MG tablet Take 1 tablet (10 mg) by mouth Once per day. 30 tablet 11 5 12/03/19 Active lisinopril 10 MG tablet Take 1 tablet (10 mg) by mouth Once per day. 90 tablet 5 12/17/19 Active fluticasone (Flonase) 50 MCG/ACT nasal spray Administer 2 sprays into each nostril Once per day. Shake gently. Before first use, prime pump. After use, clean tip and replace cap. 16 g 12/17/19 Active cetirizine (ZyrTEC) 10 MG tablet Take 1 tablet (10 mg) by mouth Once per day. 90 tablet 12/17/19 Active Blood Pressure kit Use to check BP as directed 1 kit 5 Active traZODone (Desyrel) 50 MG tablet TAKE 1/2-1 TABLET (25-50 MG) BY MOUTH IF NEEDED AT BEDTIME FOR SLEEP. 30 tablet 2 5 Active sertraline (Zoloft) 25 MG tablet TAKE 1 TABLET (25 MG) BY MOUTH ONCE PER DAY. 30 tablet 2 5 Active Dulaglutide (Trulicity) 0.75 MG/0.5ML solution auto-injectorIn dications:New onset type 2 diabetes mellitus (CMS/HCC) Inject 0.75 mg under the skin 1 (one) time per week. 2 mL 5 Active Active Problems Problem Noted Date Diagnosed Date BMI 40.0-44.9, adult 10/27/2024 History of subarachnoid hemorrhage 10/27/2024 Cerebral aneurysm 10/27/2024 Status post placement of cardiac pacemaker 10/27 Complete heart block 10/27/2024 Essential hypertension 10/26/2024 Grief 10/26/2024 Assessment & Plan (10/26/2024 3:57 PM EDT): During IBH Consult Coni presenting with excessive worry/anxiety, difficulty controlling worry, anxiety/worry associated to restlessness and/or feeling keyed-up/On edge , easily fatigued , difficulty concentrating and/or mind going blank , irritability, muscle tension , and sleep disturbance difficulty falling asleep and difficulty staying asleep , Fear , and sense of dread intense sadness, guilt and remorse, emotional pain associated with her loss ; for a period of 18+ mo, for most or all symptoms in the context of and anxiety and stress work-related. Coni reported symptoms started after the passing of her son whom completed SI 11 years ago at the age of 15. Pt feels overwhelmed with emotions, and seeking out for professional support for the first time. Her anxiety is increasing due to stress at work and high demands of her job. Positive support received by her and two other children. Grief sxs are intense, but are not stopping patient from performing in different areas of her life and continuing her life purpose. Pt was provided with grief counseling, validation of emotions and a safe space where she can release her pain. Normalized overwhelming emotions (anger, remorse, guiltiness, confusion) experienced after her loss. Discussed about the effect of trauma along with her anxiety in the body and mind. Pt was provided with tools to use when experiencing sxs and agreed to be referred for OP therapy. clinician will bridge services and do follow-up BE while being on wait list. PCP is starting medication to help decrease sxs. [facility] and [facility] contact information given in case sooner appointments needed. Generalized anxiety disorder 10/26/2024 Assessment & Plan (10/26/2024 3:57 PM EDT): During IBH Consult Coni presenting with excessive worry/anxiety, difficulty controlling worry, anxiety/worry associated to restlessness and/or feeling keyed-up/On edge , easily fatigued , difficulty concentrating and/or mind going blank , irritability, muscle tension , and sleep disturbance difficulty falling asleep and difficulty staying asleep , Fear , and sense of dread intense sadness, guilt and remorse, emotional pain associated with her loss ; for a period of 18+ mo, for most or all symptoms in the context of and anxiety and stress work-related. Coni reported symptoms started after the passing of her son whom completed SI 11 years ago at the age of 15. Pt feels overwhelmed with emotions, and seeking out for professional support for the first time. Her anxiety is increasing due to stress at work and high demands of her job. Positive support received by her and two other children. Grief sxs are intense, but are not stopping patient from performing in different areas of her life and continuing her life purpose. Pt was provided with grief counseling, validation of emotions and a safe space where she can release her pain. Normalized overwhelming emotions (anger, remorse, guiltiness, confusion) experienced after her loss. Discussed about the effect of trauma along with her anxiety in the body and mind. Pt was provided with tools to use when experiencing sxs and agreed to be referred for OP therapy. clinician will bridge services and do follow-up BE while being on wait list. PCP is starting medication to help decrease sxs. [facility] and [facility] contact information given in case sooner appointments needed. Encounters Date Type Department Care Team Description 03/30/2025 10:45 AM EDT Office Visit [address] [address] Tita Flores DO Type 2 diabetes mellitus without complication, without long-term current use of insulin (CMS/HCC) (Primary Dx); Essential hypertension; Complete heart block (CMS/HCC); Generalized anxiety disorder; Healthcare maintenance; Dietary counseling; Exercise counseling; Chronic pain of right knee 03/29/2025 Travel 03/29/[address] [address] Tita Flores DO Chart Prep 02/23/[address] [address] Tita Flores DO Prior Authorization ([employer] [place]: Trulicity 0.75 MG) 01/24/[address] [address] Tita Flores DO 01/05/[address] [address] Tita Flores DO 01/04/2025 Refill [facility] [address] [place] [address] Tita Flores DO 12/29/2024 Refill [facility] [address] [place] [address] Tita Flores DO from Last 3 Months Family History Medical History Relation Name Comments Diabetes Father Hypertension Father Anxiety disorder Mother Bipolar disorder Mother Ovarian cancer Mother Testicular cancer Mother's Brother Breast cancer Mother's Sister Heart disease Paternal Grandfather Relation Name Status Comments Father Alive Mother Mother's Brother Mother's Sister Paternal Grandfather Social History Tobacco Use Types Packs/Day Years Used Date Smoking Tobacco: Never Smokeless Tobacco: Never Tobacco Cessation:Counseling Given: Not Answered Alcohol Use Standard Drinks/Week Comments Never 0 [...] Orientation Straight 11/04/2024 7: 26 PM EDT Last Filed Vital Signs Vital Sign Reading [...] Mass Index 40.44 03/30/2025 10:43 AM EDT Plan of Treatment Health Maintenance Due Date Last Done Comments CT Colonography 1973 Colonoscopy 1973 Colorectal Cancer Screening 1973 FIT DNA/Cologuard 1973 FIT 1973 FOBT 1973 Sigmoidoscopy 1973 Diabetes: Foot Exam 11/20/1983 Eye Exam 11/20/1983 Family Planning (PISQ) 1988 DTaP/Tdap/Td Vaccines (1 - Tdap) 1992 Hepatitis B Vaccines (1 of 3 - 19+ 3-dose series) 1992 Pneumococcal Vaccine: 50+ Years (1 of 2 - PCV) 1992 HPV/Cotest 11/20/2003 Mammogram 2013 Zoster Vaccines (1 of 2) 11/20/2023 COVID-19 Vaccine (4 - 2023-2 5 season) 2024 06/19/2022, 12/09/2020, 11/17/2020 Influenza Vaccine (#1) 2025 Depression Monitoring 04/28/2025 10/26/2024 , 10/26/2024 Cervical Cancer Screening 05/21/2025 Pap Smear 05/21/2025 05/21/2022 Diabetes: Hemoglobin A1C 09/30/2025 025, 11/23/2024, 10/26/2024 SDOH Screening 10/18/2025 10/18/2024 Alcohol/Substance Use Screening 10/26/2025 10/26/2024 Diabetes: Urine Protein Screening 10/26/2025 10/26/2024 Lipid Panel 10/26/2025 10/26/2024 Disability Screening 11/04/2025 11/04/2024 Tobacco Screening 03/30/2026 03/30/2025 RSV Patients and Patients Aged 60 years or older (1 - 1-dose 75+ series) 2048 HIV Screening Completed 10/26/2024 Hepatitis C Screening Completed 10/26/2024 HIB Vaccines Aged Out No longer eligi ble based on patient's age to complete this topic HPV Vaccines Aged Out No longer eligi ble based on patient's age to complete this topic Hepatitis A Vaccines Aged Out No long er eligible based on patient's age to complete this topic IPV Vaccines Aged Out No longer eligi ble based on patient's age to complete this topic Meningococcal B Vaccine Aged Out No l onger eligible based on patient's age to complete this topic Meningococcal Vaccine Aged Out No jorge manuela eligible based on patient's age to complete this topic RSV under 20 months Aged Out No longe r eligible based on patient's age to complete this topic Rotavirus Vaccines Aged Out No longer eligible based on patient's age to complete this topic Procedures Procedure Name Priority Date/Time Associated Diagnosis Comments XR KNEE 4+ VIEWS RIGHT Routine 03/30/2025 11:52 AM EDT Chronic pain of right knee POCT GLYCATED HEMOGLOBIN, TOTAL Routine 03/30/2025 10:45 AM EDT Type 2 diabetes mellitus without complication, without long-term current use of insulin (CMS/HCC) POCT GLUCOSE Routine 03/30/2025 10:45 AM EDT Type 2 diabetes mellitus without complication, without long-term current use of insulin (CMS/HCC) ALBUMIN, RANDOM URINE W/CREATININE Routine 10/26/2024 1:08 PM EDT Routine history and physical examination of adult Essential hypertension HEPATITIS C AB W/REFL TO HCV RNA, QN, PCR Routine 10/26/2024 1:06 PM EDT Routine history and physical examination of adult Essential hypertension HIV 1/2 ANTIGEN/ANTIBODY, FOURTH GENERATION W/RFL Routine 10/26/2024 1:06 PM EDT Routine history and physical examination of adult Essential hypertension LIPID PANEL, STANDARD Routine 10/26/2024 1:06 PM EDT Routine history and physical examination of adult Essential hypertension PAP SMEAR Routine 05/21/2022 12:00 AM EDT from Last 3 Months or Most Recently Relevant to Health Maintenance Results * XR Knee 4+ Views Right (03/30/2025 11:52 AM EDT) Anatomical Region Laterality Modality Lower Extremities, Knee Right Radiogra phic Imaging 03/30/2025 11:5 2 AM EDT Narrative 03/30/2025 12:16 [place] [address] XRay Report Signed Patient: Coni Berrios MR#: [id number] : 1975 Acct:[id number] Age/Sex: 49 / F ADM Date: 03/30/25 Loc: HO.HHCX Attending Dr: Tita Flores DO Ordering Physician: Tita Flores DO Date of Service: 03/30/25 Procedure(s): XR knee RT 4V Accession Number(s): [id number] cc: Tita Flores DO EXAMINATION: XR KNEE, [...] 03/30/25 1213 DD/ 1152 TD/TT: 03/30/25 1200 Box Puller: Procedure Note Donotuseinterpreter, Image - 03/30/[address] [address] XRay Report Signed Patient: Coni Berrios AMR#: [id number] : 1975Acct:[id number] Age/Sex: 49 / FADM Date: 03/30/25 Loc: HO.HHCX Attending Dr: Tita Flores DO Ordering Physician: Tita Flores DO Date of Service: 03/30/25 Procedure(s): XR knee RT 4V Accession Number(s): [id number] cc: Tita Flores DO EXAMINATION: XR KNEE, [...] 03/30/25 1213 DD/ 1152 TD/TT: 03/30/25 1200 Box Puller: Tita Sandra DO IMG XR PROCEDURES Final Resu lt * (ABNORMAL) POCT HGB A1C (03/30/2025 10:45 AM EDT) Hemoglobin A1C 6.4(A) 4.0 - 5.7 % QC Media Lot # [id number] Lot# Expiration Date Blood 03/30/2025 10:4 5 AM EDT Tita Sandra DO POINT OF CARE TEST ENTER/CANDIDA T ORDERABLES Final Result * POCT Glucose (03/30/2025 10:45 AM EDT) Pathologist [facility] Glucose Blood, POC 135 60 - 200 mg/dL QC Media Lot # [id number] Lot# Expiration Date Blood Capillary blood specimen / Unknown 03/30/2025 10:45 AM EDT Tita Sandra DO POINT OF CARE TEST ENTER/CANDIDA T ORDERABLES Final Result * (ABNORMAL) Albumin, Random Urine W/Creatinine (10/26/2024 1:08 PM EDT) Pathologist [facility] Creatinine, Urine 132.14 mg/dL [facility] Microalbumin Urine 90.0 mg/L [facility] Microalbum Creatinine Ratio Ur 68.1(H) <30 ug/mg cr [facility] Comment:Albumin/Creatinine R atio Reference Ranges: Normal: < 30 ug/mg creatinine Microalbuminuria: 30 - 300 ug/mg creatinineClinical Albuminuria: > 300 ug/mg creatinine Urine (Urine, Random) 10/26/2024 1:08 PM EDT 10/26/2024 4:29 PM EDT Tita Sandra RECINOS LAB URINE ORDERABLES Final R esult [facility] [address] [place] [phone] * Hepatitis C Antibody with Reflex to HCV, RNA, Quantitative, Real-Time PCR (10/26/2024 1:06 PM EDT) [facility] Hepatitis C Antibody Nonreactive Nonreactive [facility] Comment:Antibodies to HCV no t detected; does not exclude early acuteHCV infection. Blood Venous blood specimen / Unknown 10/26/2024 1:06 PM EDT 10/26/2024 4:21 PM EDT Tita Flores LAB BLOOD ORDERABLES Final R esult Performing Organization Address [facility] Co de Phone Number [facility] [address] [place] [phone] * HIV-1/2 Antigen and Antibodies, Fourth Generation, with Reflexes (10/26/2024 1:06 PM EDT) [facility] HIV AB/AG Nonreactive Nonreactive [facility] Comment:HIV-1 p24 Ag and/or HIV-1/HIV-2 Ab not detected.A test result that is nonreactive does not exclude thepossibility of exposure to or infection with HIV-1 and/orHIV-2. Nonreactive results in this assay for individualswith prior exposure to HIV-1 and/or HIV-2 may be due toantigen and antibody levels that are below the limit ofdetection of this assay.The [employer] HIV Ag/Ab Combo assay result andsupplemental assay results should be interpreted inconjunction with the patient's clinical presentation,history and other laboratory results. If the results areinconsistent with clinical evidence, additional testing issuggested to confirm the result. Blood Venous blood specimen / Unknown 10/26/2024 1:06 PM EDT 10/26/2024 4:21 PM EDT [facility] BLOOD ORDERABLES Final R esult Performing Organization Address City/[facility] Co de Phone Number [facility] [address] [place] [phone] * (ABNORMAL) Lipid Panel, Standard (10/26/2024 1:06 PM EDT) Triglycerides 198(H) <150 mg/dL [facility] Comment:Desirable Triglyceri de: less than 150 mg/dLBorderline High Triglyceride 150-199 mg/dLHigh Triglyceride: 200-499 mg/dLVery High Triglyceride: greater than or equal to 5OO mg/dL Cholesterol 184 <200 mg/dL [facility] Comment:Desirable Cholestero l: less than 200 mg/dLBorderline High Cholesterol: 200-239 mg/dLHigh Cholesterol: greater than 239 mg/dL LDL Cholesterol Calculated 82 <100 mg/dL [facility] Comment:Desirable LDL: less than 100 mg/dLNear Optimal/Above Optimal LDL: 110- 129 mg/dLBorderline High LDL: 130-159 mg/dLHigh LDL: 160-189 mg/dLVery High LDL: greater than or equal to 190 mg/dL HDL Cholesterol 63 >40 mg/dL [facility] Comment:Desirable HDL: great er than 40 mg/dL Note: This HDL assay may give artificially low results in patients with liver disease. Blood Venous blood specimen / Unknown 10/26/2024 1:06 PM EDT 10/26/2024 4:06 PM EDT Tita Flores DO LAB BLOOD ORDERABLES Final R esult Performing Organization Address City/[facility]/ZIP Co de Phone Number [facility] [address] [place] [address] [phone] * Pap Smear (05/21/2022 12:00 AM EDT) Swab Historical Provider LAB CYTOLOGY ORDERABLES F inal Result Performing Organization Address City/[facility]/ZIP Co de Phone Number [facility] [address] [place] [phone] from Last 3 Months or Most Recently Relevant to Health Maintenance Insurance [employer] Care Teams Epic [employer] Relationship Specialty Start Date End Date Tita Flores DO [address] [place] [address] PCP - General Family Medicine 10/26/24
--- OUTSIDE RECORDS SUMMARY | 2025-03-30 12:39 | XMS_ITS | Encounter Summary ---
Author Organization [employer] Address [address] [place] [address] Care Team Providers Care Dirt Shoveler Name Role Phone Tita Flores DO Primary Care Provider + [phone] Encounter Details Date Type Department Care Team (Latest Contact Info) Description 03/29/2025 Travel Social History Tobacco Use Types Packs/Day Years [...] documented as of this encounter Care Teams Dirt Shoveler Relationship Specialty Start Date End Date Tita Flores DO [address] [place] [phone] PCP - General Family Medicine 10/26/24 documented as of this encounter
--- OUTSIDE RECORDS SUMMARY | 2025-03-30 12:39 | XMS_ITS | Clinical Summary ---
Author Organization [facility] Address [address] [place] [phone] Phone Care Team Providers Care Alemite Operator Name Role Phone Saqib Bishop MD Primary Care Provider Allergies No known active allergies Medications celecoxib (CELEBREX) 200 MG capsuleIndicati ons:Right knee pain Take 1 capsule (200 mg total) by mouth daily. Take with food. 30 capsule 07/21/2023 Active Active Problems No known active problems Social History Tobacco Use Types Packs/Day Years Used Date Smoking Tobacco: Never Smokeless Tobacco: Never Tobacco Cessation:Counseling Given: Not Answered Alcohol Use Standard Drinks/Week Comments Not Currently 0 (1 standard drink = 0.6 oz pur e alcohol) Education Answer Date Recorded Are you interested in more education? Not on siddharth e 06/23/2023 Are you concerned about learning? Not on file 06/23/2023 No 06/23/2023 No 06/23/2023 Digital Access Answer Date Recorded No 06/23/2023 No 06/23/2023 Reliable internet access at home? Not on file 06/23/2023 Device with a working camera? Not on file Comments No Sex and Gender Information Value Date Recorded Sex Assigned at Not on file Legal Sex Female 5:49 PM EST Gender Identity Not on file Sexual Orientation Not on file Last Filed Vital Signs Vital Sign Reading Time Taken Comments Blood Pressure 142/73 06/23/2023 6:03 PM EST Pulse 60 06/23/2023 6:03 PM EST Temperature 36.3 C (97.3 F) 06/23/2023 6:03 PM EST Respiratory Rate 18 06/23/2023 6:03 PM EST Oxygen Saturation 99% 06/23/2023 6:03 PM EST Inhaled Oxygen Concentration - - Weight 104.3 kg (230 lb) 06/23/2023 6:03 PM EST Height 165.1 cm (5' 5 ) 06/23/2023 6:03 PM EST Body Mass Index 38.27 06/23/2023 6:03 PM EST Plan of Treatment Health Maintenance Due Date Last Done Comments Adult Td,Tdap Booster 1975 LIPID PANEL 1973 DEPRESSION SCREENING 1985 HEPATITIS C SCREENING 11/20/1991 HIV ONE-TIME SCREENING (18-6 5 YEARS) 11/20/1991 PAP SMEAR 1994 SCREENING FOR DIABETES 2008 MAMMOGRAM 2013 COLOGUARD 2018 COLONOSCOPY 2018 COLORECTAL CANCER SCREENING 2018 FIT TEST 2018 FOBT 2018 SIGMOIDOSCOPY 2018 VIRTUAL COLONOSCOPY 2018 PNEUMOCOCCAL VACCINES (50+ years) (1 of 1 - PCV) 11/20/2023 ZOSTER VACCINES (1 of 2) 11/20/2023 COVID-19 VACCINE (4 - 2023-2 5 season) 2024 06/19/2022, 12/09/2020, 11/17/2020 INFLUENZA VACCINE (#1) 2025 SMOKING STATUS SCREENING (On ce After 26 Yrs) Completed 07/21/2023 HEPATITIS A VACCINES Aged Out No long er eligible based on patient's age to complete this topic HIB VACCINES Aged Out No longer eligi ble based on patient's age to complete this topic MENINGOCOCCAL VACCINES (ACWY) Aged Out No longer eligible based on patient's age to complete this topic MENINGOCOCCAL VACCINES (B) Aged Out N o longer eligible based on patient's age to complete this topic Medical Devices Not on file Insurance [facility] NON NSP PCP [employer] NON NSPG PCP [employer] NON NSPG PCP [employer]CIAL [employer] NON NSPG PCP [place] [id number] [facility] NON [facility]SPG PCP CLARITY COMMERCIAL [facility] [place] [address] [facility] NON NSPG PCP CLARITY COMMERCIAL Care Teams Alemite Operator Relationship Specialty Start Date End Date Saqib Bishop MD [address] [place] [address] [place] [phone] PCP - General Internal Medicine 06/23/23 Additional Source Comments The information contained in this document represents components of the legal health record. It is not the complete legal health record.[facility]
--- OUTSIDE RECORDS SUMMARY | 2025-03-30 12:39 | XMS_ITS | Encounter Summary ---
Author Organization [employer] Address [address] [place] [address] Care Team Providers Care Manager Underwriting Name Role Phone Tita Flores DO Primary Care Provider + [phone] Encounter Details Date Type Department Care Team ([facility] st Contact Info) Description 10/27/2024 Orders Only [facility] [address] [place] [address] Lupis Alva, RN [address] [place] [address] Social History Tobacco Use Types Packs/Day Years [...] Procedure Name Priority Date/Time Associated Diagnosis Comments PAP SMEAR Routine 05/21/2022 12:00 AM EDT documented in this encounter Results * Pap Smear (05/21/2022 12:00 AM EDT) Swab us Historical Provider MD LAB CYTOLOGY ORDERABLES F inal Result [facility] [address] [place] [phone] documented in this encounter Visit Diagnoses Not on filedocumented in this encounter Additional Health Concerns Assessment Noted Time PHQ-9 Depression Total Score: 19 10/26/ 025 3:01 PM EDT documented as of this encounter Care Teams Manager Underwriting Relationship Specialty Start Date End Date Tita Flores DO [address] [place] [address] PCP - General Family Medicine 10/26/24 documented as of this encounter
== END 2025-03-30 11:42 | disposition home or self-care (01) ==
LOC: HO.HHCX 11:41
PROVIDERS: PCP Family Medicine; Visit Provider Family Medicine
DX: M25.561 Pain in right knee (principal); G89.29 Other chronic pain
CPT/HCPCS: 73564

== ENCOUNTER → 2025-03-30 11:52 | Outpatient (BNV) | payer OTHER, SELFPAY | PROVIDERS: PCP Family Medicine; Visit Provider Radiology Diagnostic Radiology | DX: M17.11 Unilateral primary osteoarthritis, right knee (principal) | CPT/HCPCS: 73564 ==

== ENCOUNTER 2025-05-06 16:29 | Outpatient (REF) | payer OTHER, SELFPAY ==
--- NOTE | ~2025-05-06 | XR_ITS ---
EXAMINATION: XR CHEST CLINICAL INFORMATION: COUGH COMPARISON: Previous chest x-ray March 2022 TECHNIQUE: 2 views of the chest were obtained. FINDINGS: Abandonment leads in the right chest that appear to project over the right atrium unchanged. Left subclavian dual-chamber pacemaker with both leads projecting over the right ventricle unchanged. Cardiac and mediastinal contours are stable. The lungs are clear. No pleural effusion or pneumothorax. Degenerative changes of the spine. XR/XR chest 2V IMPRESSION: No evidence for acute disease in the chest. Electronically signed by: Demi Guerrero MD 05/06/2025 04:42 PM EDT
--- OUTSIDE RECORDS SUMMARY | 2025-05-06 15:45 | XMS_ITS | Encounter Summary ---
Author Organization [employer] Address [address] [place] [address] 7 [place] [address] Care Team Providers Care Terrazzo Laborer Name Role Phone Tita Flores DO Primary Care Provider + [phone] Reason for Visit * Reason Comments sick onsite Encounter Details Date Type Department Care Team ([facility] st Contact Info) Description 05/06/2025 3:45 PM EDT Office Visit [facility] [address] [place] [address] Jennifer Bautista NP [address] [place] [address] Persistent cough (Primary Dx) Social History Tobacco Use Types Packs/Day Years [...] Sign Reading Time Taken Comments Blood Pressure 120/86 05/06/2025 3:52 PM EDT Pulse 101 05/06/2025 3:52 PM EDT Temperature 37.2 C (99 F) 05/06/2025 3:52 PM EDT Respiratory Rate 25 05/06/2025 3:52 PM EDT Oxygen Saturation 97% 05/06/2025 3:52 PM EDT Inhaled Oxygen Concentration - - Weight 112 kg (247 lb 6.4 oz) 05/06/2025 3:52 PM EDT Height 165.1 cm (5' 5 ) 05/06/2025 3:52 PM EDT Body Mass Index 41.17 05/06/2025 3:52 PM EDT documented in this encounter Plan of Treatment Scheduled Orders Name Type Priority Associated Diagnoses Orde r Schedule XR Chest 2 Views Imaging Routine Persistent cough Expected: 05/06/2025, Expires: 05/06/2026 documented as of this encounter Visit Diagnoses Diagnosis Persistent cough- Primary documented in this encounter Additional Health Concerns Assessment Noted Time PHQ-9 Depression Total Score: 19 025 3:01 PM EDT documented as of this encounter Care Teams Terrazzo Laborer Relationship Specialty Start Date End Date Tita Flores DO [address] [place] [address] PCP - General Family Medicine 10/26/24 documented as of this encounter
--- OUTSIDE RECORDS SUMMARY | 2025-05-06 16:32 | XMS_ITS | Encounter Summary ---
Author Organization [employer] Address [address] [facility] 7t [place] [address] Care Team Providers Care Sound Installation Worker Name Role Phone Tita Flores DO Primary Care Provider + [phone] Encounter Details Date Type Department Care Team ([facility] st Contact Info) Description 10/27/2024 Orders Only [facility] [address] [place] [address] Lupis Alva, RN [address] [place] [address] Social History Tobacco Use Types Packs/Day Years [...] MD LAB CYTOLOGY ORDERABLES F inal Result [facility] [address] [place] [phone] documented in this encounter Visit Diagnoses Not on filedocumented in this encounter Additional Health Concerns Assessment Noted Time PHQ-9 Depression Total Score: 19 10/26/ 025 3:01 PM EDT documented as of this encounter Care Teams Sound Installation Worker Relationship Specialty Start Date End Date Tita Flores DO [address] [place] [address] PCP - General Family Medicine 10/26/24 documented as of this encounter
--- OUTSIDE RECORDS SUMMARY | 2025-05-06 16:32 | XMS_ITS | Clinical Summary ---
Author Organization [employer] Address [address] [place] [address] 7t [place] [address] Care Team Providers Care Contact Acid Plant Operator Name Role Phone Sandra Tita Primary Care Provider + [phone] Allergies Active Allergy Reactions Criticality Noted Date [...] if needed for anxiety. 30 capsule 2 10/28/19 25 026 Active Blood Glucose Monitoring Suppl (ONE TOUCH ULTRA 2) w/Device kit Use to check BS as directed 1 kit 10/30/19 25 Active OneTouch Delica Lancets 33G misc Use to check BS daily 100 each 11 10/30/19 25 Active Alcohol Swabs 70 % pads Use when checking BS as directed 100 each 10/30/19 25 Active glucose blood (OneTouch Ultra) test strip USE TO CHECK BLOOD SUGAR ONCE DAILY DIRECTED 100 strip 12 10/30/19 25 Active Semaglutide,0. 25 or 0.5MG/DOS, (Ozempic, 0.25 or 0.5 MG/DOSE,) 2 MG/3ML solution pen-injectorIn dications:New onset type 2 diabetes mellitus (HCC) Inject 0.25 mg under the skin 1 (one) time per week. 3 mL 3 12/03/19 25 Active atorvastatin (Lipitor) 10 MG tablet Take 1 tablet (10 mg) by mouth Once per day. 30 tablet 11 12/03/19 Active lisinopril 10 MG tablet Take 1 tablet (10 mg) by mouth Once per day. 90 tablet 12/17/19 Active fluticasone (Flonase) 50 MCG/ACT nasal spray Administer 2 sprays into each nostril Once per day. Shake gently. Before first use, prime pump. After use, clean tip and replace cap. 16 g 12/17/19 Active cetirizine (ZyrTEC) 10 MG tablet Take 1 tablet (10 mg) by mouth Once per day. 90 tablet 3 12/17/19 Active Blood Pressure kit Use to check BP as directed 1 kit 12/31/19 25 Active Dulaglutide (Trulicity) 0.75 MG/0.5ML solution auto-injectorI ndications:New onset type 2 diabetes mellitus (HCC) Inject 0.75 mg under the skin 1 (one) time per week. 2 mL 01/29/20 25 Active sertraline (Zoloft) 25 MG tablet TAKE 1 TABLET (25 MG) BY MOUTH ONCE PER DAY. 30 tablet 2 04/28/20 25 Active traZODone (Desyrel) 50 MG tablet TAKE 1/2-1 TABLET (25-50 MG) BY MOUTH IF NEEDED AT BEDTIME FOR SLEEP. 30 tablet 2 04/28/20 25 Active albuterol 108 (90 Base) MCG/ACT inhalerIndicat ions:Persisten t cough Inhale 2 puffs every 6 (six) hours if needed (cough). 18 g 05/06/20 25 026 Active traZODone (Desyrel) 50 MG tablet TAKE 1/2-1 TABLET (25-50 MG) BY MOUTH IF NEEDED AT BEDTIME FOR SLEEP. 30 tablet 2 01/26/20 25 025 Discontinued sertraline (Zoloft) 25 MG tablet TAKE 1 TABLET (25 MG) BY MOUTH ONCE PER DAY. 30 tablet 2 01/26/20 25 025 Discontinued Active Problems Problem Noted Date Diagnosed Date BMI 40.0-44.9, adult ([facility]) 10/27/2024 History of subarachnoid hemorrhage 10/27/2024 Cerebral aneurysm 10/27/2024 Status post placement of cardiac pacemaker 10/27 Complete heart block ([facility]) 10/27/2024 Essential hypertension 10/26/2024 Grief 10/26/2024 Assessment [...] is starting medication to help decrease sxs. CB and [facility] contact information given in case sooner appointments [...] context of and anxiety and stress work-related. Cnoi reported symptoms started after the passing of [...] is starting medication to help decrease sxs. CB and [facility] contact information given in case sooner appointments needed. Encounters Date Type Department Care Team Description 05/06/2025 3:45 PM EDT Office Visit [facility] [address] [place] [phone] Jennifer Bautista NP Persistent cough (Primary Dx) 05/06/2025 Travel 04/27/2025 Refill [facility] [address] [place] [address] Tita Flores DO 03/30/2025 10:45 AM EDT Office Visit [facility] [address] [place] [address] Tita Flores DO Type 2 diabetes mellitus without complication, without long-term current use of insulin (CMS/HCC) (Primary Dx); Essential hypertension; Complete heart block (CMS/HCC); Generalized anxiety disorder; Healthcare maintenance; Dietary counseling; Exercise counseling; Chronic pain of right knee 03/29/2025 Travel 03/29/2025 Telephone [facility] [address] [place] [address] Tita Flores DO Chart Prep 02/23/2025 Telephone [facility] [address] [place] [address] Tita Flores DO Prior Authorization ([employer] Benefit (BCBS) [place]: Trulicity 0.75 MG) from Last 3 Months Family History Medical [...] Mass Index 41.17 05/06/2025 3:52 PM EDT Plan of Treatment Health Maintenance Due [...] of 2) 11/20/2023 COVID-19 Vaccine (4 - 2024-2 6 season) 2025 06/19/2022, 12/09/2020, 11/17/2020 Influenza Vaccine (#1) 2025 [...] complication, without long-term current use of insulin ([facility]) POCT GLUCOSE Routine 03/30/2025 10:45 AM EDT Type 2 diabetes mellitus without complication, without long-term current use of insulin ([facility]) ALBUMIN, RANDOM URINE W/CREATININE Routine 10/26/2024 1:08 [...] Laterality Modality Lower Extremities, Knee Right [facility] 03/30/2025 11:5 2 AM EDT Narrative 03/30/2025 12:16 [place] [address] XRay Report Signed Patient: Coni Berrios MR#: [id number] : 1975 Acct:[id number] Age/Sex: 49 / F ADM Date: 03/30/25 Loc: .HHCX Attending Dr: Tita Flores DO Ordering Physician: Tita Flores DO Date of Service: 03/30/25 Procedure(s): XR knee RT 4V Accession Number(s): [id number] cc: Tita Flores DO EXAMINATION: XR KNEE, [...] 03/30/25 1213 DD/ 1152 TD/TT: 03/30/25 1200 Net Web Application Developer: Procedure Note Donotuseinterpreter, Image - 03/30/[address] [address] XRay Report Signed Patient: Coni Berrios AMR#: [id number] : 1975Acct:[id number] Age/Sex: 49 / FADM Date: 03/30/25 Loc: HO.HHCX Attending Dr: Tita Flores DO Ordering Physician: Tita Flores DO Date of Service: 03/30/25 Procedure(s): XR knee RT 4V Accession Number(s): [id number] cc: Tita Flores DO EXAMINATION: XR KNEE, [...] 03/30/25 1213 DD/ 1152 TD/TT: 03/30/25 1200 Net Web Application Developer: Tita Flores DO IMG XR PROCEDURES Final [...] / Unknown 03/30/2025 10:45 AM EDT Tita Flores DO POINT OF CARE TEST ENTER/CANDIDA T ORDERABLES Final Result * (ABNORMAL) Albumin, Random Urine W/Creatinine (10/26/2024 1:08 PM EDT) Creatinine, Urine 132.14 mg/dL [facility] Microalbumin Urine 90.0 mg/L [facility] Microalbum Creatinine Ratio Ur 68.1(H) <30 ug/mg cr [facility] Comment:Albumin/Creatinine R atio Reference Ranges: Normal: < 30 ug/mg creatinine Microalbuminuria: 30 - 300 ug/mg creatinineClinical Albuminuria: > 300 ug/mg creatinine Urine (Urine, Random) 10/26/2024 1:08 PM EDT 10/26/2024 4:29 PM EDT Tita Flores LAB URINE ORDERABLES Final R esult Performing Organization Address City/[facility]/ZIP Co de Phone Number [facility] [address] [place] [address] [phone] * Hepatitis C Antibody with Reflex to HCV, RNA, Quantitative, Real-Time PCR (10/26/2024 1:06 PM EDT) Hepatitis C Antibody Nonreactive Nonreactive [facility] Comment:Antibodies to HCV no t detected; does not exclude early acuteHCV infection. Blood Venous blood specimen / Unknown 10/26/2024 1:06 PM EDT 10/26/2024 4:21 PM EDT Tita Flores LAB BLOOD ORDERABLES Final R esult Performing Organization Address [facility]/ZIP Co de Phone Number [facility] [address] [place] [address] [phone] * HIV-1/2 Antigen and Antibodies, Fourth Generation, with Reflexes (10/26/2024 1:06 PM EDT) HIV AB/AG Nonreactive Nonreactive [facility] Comment:HIV-1 p24 Ag and/or HIV-1/HIV-2 Ab not detected.A test result that is nonreactive does not exclude thepossibility of exposure to or infection with HIV-1 and/orHIV-2. Nonreactive results in this assay for individualswith prior exposure to HIV-1 and/or HIV-2 may be due toantigen and antibody levels that are below the limit ofdetection of this assay.The [employer] HIV Ag/Ab Combo assay result andsupplemental assay results should be interpreted inconjunction with the patient's clinical presentation,history and other laboratory results. If the results areinconsistent with clinical evidence, additional testing issuggested to confirm the result. Blood Venous blood specimen / Unknown 10/26/2024 1:06 PM EDT 10/26/2024 4:21 PM EDT Tita Sandra LAB BLOOD ORDERABLES Final R esult Performing Organization Address City/[facility] Co de Phone Number [facility] [address] [place] [address] [phone] * (ABNORMAL) Lipid Panel, Standard (10/26/2024 1:06 PM EDT) Triglycerides 198(H) <150 mg/dL [facility] Comment:Desirable Triglyceri de: less than 150 mg/dLBorderline High Triglyceride 150-199 mg/dLHigh Triglyceride: 200-499 mg/dLVery High Triglyceride: greater than or equal to 5OO mg/dL Cholesterol 184 <200 mg/dL [facility] Comment:Desirable Cholestero l: less than 200 mg/dLBorderline High Cholesterol: 200-239 mg/dLHigh Cholesterol: greater than 239 mg/dL LDL Cholesterol Calculated 82 <100 mg/dL [facility] Comment:Desirable LDL: less than 100 mg/dLNear Optimal/Above Optimal LDL: 110- 129 mg/dLBorderline High LDL: 130-159 mg/dLHigh LDL: 160-189 mg/dLVery High LDL: greater than or equal to 190 mg/dL HDL Cholesterol 63 >40 mg/dL [facility] Comment:Desirable HDL: great er than 40 mg/dL Note: This HDL assay may give artificially low results in patients with liver disease. Blood Venous blood specimen / Unknown 10/26/2024 1:06 PM EDT 10/26/2024 4:06 PM EDT Tita Flores DO LAB BLOOD ORDERABLES Final R esult Performing Organization Address City/[facility]/ZIP Co de Phone Number [facility] [address] [place] [address] [phone] * Pap Smear (05/21/2022 12:00 AM EDT) Swab us Historical Provider MD LAB CYTOLOGY ORDERABLES F inal Result [facility] [address] [place] [address] [phone] from Last 3 Months or Most Recently Relevant to Health Maintenance Insurance [employer] Care Teams Contact Acid Plant Operator Relationship Specialty Start Date End Date Tita Flores DO [address] [place] [phone] PCP - General Family Medicine 10/26/24
--- OUTSIDE RECORDS SUMMARY | 2025-05-06 16:32 | XMS_ITS | Encounter Summary ---
Author Organization [employer] Address [address] [facility] 7t [place] [address] Care Team Providers Care Reliability Technicians Name Role Phone Tita Flores DO Primary Care Provider + [phone] Encounter Details Date Type Department Care Team (Latest Contact Info) Description 05/06/2025 Travel Social History Tobacco Use Types Packs/Day [...] documented as of this encounter Care Teams Reliability Technicians Relationship Specialty Start Date End Date Tita Flores DO [address] [place] [address] PCP - General Family Medicine 10/26/24 documented as of this encounter
--- OUTSIDE RECORDS SUMMARY | 2025-05-06 16:32 | XMS_ITS | Encounter Summary ---
Author Organization [employer] Address [address] [place] [address] 7 [place] [address] Care Team Providers Care Able Bodied Seaman Name Role Phone Tita Flores DO Primary Care Provider + [phone] Reason for Visit * Reason Comments Med Change Request Encounter Details Date Type Department Care Team ([facility] st Contact Info) Description 12/21/2024 Refill [facility] [address] [place] [address] Tita Flores DO [address] [place] [address] Social History Tobacco Use Types Packs/Day Years [...] documented as of this encounter Care Teams Able Bodied Seaman Relationship Specialty Start Date End Date Tita Flores DO [address] [place] [address] PCP - General Family Medicine 10/26/24 documented as of this encounter
--- OUTSIDE RECORDS SUMMARY | 2025-05-06 16:32 | XMS_ITS | Encounter Summary ---
Author Organization [employer] Address [address] [place] [address] 7 [place] [address] Care Team Providers Care District Wildlife Manager Name Role Phone Tita Flores DO Primary Care Provider + [phone] Reason for Visit * Reason Comments Med Refill Encounter Details Date Type Department Care Team ([facility] st Contact Info) Description 12/15/2024 Refill [facility] [address] [place] [address] Tita Flores DO [address] [place] [address] Social History Tobacco Use Types Packs/Day Years [...] documented as of this encounter Care Teams District Wildlife Manager Relationship Specialty Start Date End Date Tita Flores DO [address] [place] [address] PCP - General Family Medicine 10/26/24 documented as of this encounter
--- OUTSIDE RECORDS SUMMARY | 2025-05-06 16:32 | XMS_ITS | Clinical Summary ---
Author Organization [facility] Address [address] [facility] [address] [place] [address] Phone Care Team Providers Care Real Time Operator Name Role Phone Saqib Bishop MD [...] 11/20/2023 ZOSTER VACCINES (1 of 2) 11/20/2023 INFLUENZA VACCINE (#1) 2025 COVID-19 VACCINE (4 - 2024-2 6 season) 2025 06/19/2022, 12/09/2020, 11/17/2020 RSV VACCINE (1 - 1-dose 75+ series) 2048 SMOKING STATUS SCREENING (On ce After 26 [...] topic Medical Devices Not on file Insurance AMEE BURGESS [id number] WELLSENSE NON NSPG PCP [employer] NON NSPG PCP [employer] NON NSPG PCP [employer]CIAL WELL[employer] NON NSPG PCP CLARITY COMMERCIAL [facility] PCP CLARITY COMMERCIAL [facility] NON NSPG PCP [employer] COMMERCIAL Care Teams Real Time Operator Relationship Specialty Start Date End Date Saqib Bishop MD [address] [place] [address] [place] [address] PCP - General Internal Medicine 06/23/23 Additional Source Comments The information contained in this document represents components of the legal health record. It is not the complete legal health record.[facility]
--- OUTSIDE RECORDS SUMMARY | 2025-05-06 16:32 | XMS_ITS | Encounter Summary ---
Author Organization [employer] Address [address] [facility] 7 [place] [address] Care Team Providers Care Wildfire Prevention Specialist Name Role Phone Tita Flores DO Primary Care Provider + [phone] Reason for Visit * Reason Onset Date Comments Med Refill 01/04/2025 Encounter Details Date Type Department Care Team (Late st Contact Info) Description 01/04/2025 Refill [facility] [address] [place] [address] Tita Flores DO [address] [place], [place] [phone] Social History Tobacco Use Types Packs/Day Years [...] documented as of this encounter Care Teams Wildfire Prevention Specialist Relationship Specialty Start Date End Date Tita Flores DO [address] [place] [address] PCP - General Family Medicine 10/26/24 documented as of this encounter
== END 2025-05-06 16:30 | disposition home or self-care (01) ==
LOC: HO.HHCX 16:29
PROVIDERS: Visit Provider Nurse Practitioner
DX: R05.3 Chronic cough (principal)
CPT/HCPCS: 71046

== ENCOUNTER → 2025-05-06 16:31 | Outpatient (BNV) | payer OTHER, SELFPAY | PROVIDERS: Visit Provider Radiology Diagnostic Radiology | DX: R05.9 Cough, unspecified (principal) | CPT/HCPCS: 71046 ==

== ENCOUNTER → 2025-05-08 23:59 | Outpatient (BNV) | payer OTHER, SELFPAY ==
--- NOTE | 2025-05-18 15:55 | A.OFFVIS_ITS ---
Intake Visit Reasons: REmote device check- Medtronic Allergies Penicillins (PENICILLINS) Allergy (Intermediate, Verified 10/27/24 13:51) rash IV contrast Allergy (Unknown, Uncoded 10/27/24 13:51) UNKNOWN [facility] Medical History Heart block Surgical History History of bilateral tubal ligation H/O unilateral oophorectomy History of cardiac pacemaker History of endometrial ablation Family History Father Diabetes Mother Ovarian cancer Social History Alcohol intake: current Alcohol intake frequency: holidays/special occasions only Patient Tobacco Use Status: Never used Tobacco Sexual orientation: Straight/Heterosexual Gender identity: Female Office Procedures Cardiac Device Check Cardiac Device Check Details: Date of service- 05/08/2025 ; Battery life >11 years; normal lead parameters; AP 0.1%; [employer] 100%; no significant arrhythmias. Overall normal device function. [id number] Cardiac Device Interrogation, pacemaker Procedure code (CPT) selection complete Assessment & Plan Assessment & Plan (1) Presence of cardiac pacemaker: Comment: Medtronic Code(s): Z95.0 - Presence of cardiac pacemaker Category: Medical (2) Heart block: Code(s): I45.9 - Conduction disorder, unspecified Category: Medical Plan x Coding Level of Care Code Procedure Only Diagnoses Presence of cardiac pacemaker Z95.0 Heart block I45.9 CPT Codes Cardiac Device Check - Cardiac Device 12: [id number] Cardiac Device Interrogation, pacemaker ([id number])
== END ==
PROVIDERS: Visit Provider Internal Medicine
DX: I45.9 Conduction disorder, unspecified (principal); Z95.0 Presence of cardiac pacemaker
CPT/HCPCS: 93294